=== PATIENT | female | born 1970 | race Caucasian/White ===

== ENCOUNTER → 2019-07-09 12:31 | Outpatient (CLI) | payer OTHER, SELFPAY ==
--- NOTE | ~2019-07-09 | MM_ITS ---
EXAMINATION: MM screening melissa BI w angelica HISTORY: Screening mammogram TECHNIQUE: Craniocaudal and mediolateral oblique 3-D tomosynthesis images were obtained and synthetic 2-D images were generated. CAD analysis was submitted and interpreted. COMPARISON: bilateral digital screening mammogram BREAST PARENCHYMAL COMPOSITION: There are scattered areas of fibroglandular density. FINDINGS: There is no evidence of suspicious mass, calcification, or architectural distortion to sugg est malignancy in either breast. There has been no suspicious interval change. IMPRESSION: 1. No mammographic evidence of malignancy. 2. Recommend routine screening mammography in one year. BI-RADS Category 1: Negative Reviewed, dictated and finalized at location A.
== END ==
PROVIDERS: PCP Nurse Practitioner Adult Health; Visit Provider Obstetrics & Gynecology
DX: Z12.31 Encounter for screening mammogram for malignant neoplasm of breast (principal)
CPT/HCPCS: 77063; 77067

== ENCOUNTER 2019-07-17 09:58 | Outpatient (CLI) | payer OTHER, SELFPAY ==
--- NOTE | ~2019-07-17 | US_ITS ---
EXAMINATION: US FNA w image guidance DATE: 07/17/2019 11:42 INDICATION: Thyroid nodule. TECHNIQUE: The procedure and its benefits, risks, and benefits were discussed with the patient. Risks specifical ly discussed included bleeding. The patient verbalized understanding of the risks and agreed to proce ed. The neck was prepped and draped in the usual sterile manner. 1% lidocaine was used for local ane sthesia. 5 passes were made with a 25G needle into the lesion. Appropriate needle location was docu mented with continuous sonographic guidance. There were no immediate complications. The patient unde rstood to call the ordering physician for results after a week and a half and verbalized that underst anding. FINDINGS: Grayscale ultrasound images demonstrate needles advanced into a 1.5 cm mixed solid and cystic nodule in right thyroid isthmus for biopsy. IMPRESSION: 1. Ultrasound-guided fine needle aspiration of a thyroid nodule. Reviewed, dictated and finalized at location A.
--- NOTE | ~2019-07-17 | US_ITS ---
EXAMINATION: US biopsy lymph node DATE: 07/17/2019 11:41 INDICATION: Right cervical lymphadenopathy. TECHNIQUE: The procedure including the risks, benefits, and alternatives was discussed with the patie nt. Risks discussed included bleeding and infection. The patient understood the risks and agreed to p roceed. The skin overlying the right neck was prepped and draped in usual sterile fashion. Anestheti c was administered with 1% lidocaine subcutaneously. An 18 gauge core biopsy needle was then used to obtain 3 core biopsy specimens under continuous sonographic guidance. The entry site was cleaned and dressed. There were no immediate complications. FINDINGS: Ultrasound images demonstrate the needle in a 2.1 x 1.7 x 1.3 cm right internal jugular lym ph node. IMPRESSION: 1. Ultrasound-guided core needle biopsy of a right internal jugular lymph node. Reviewed, dictated and finalized at location A.
== END 2019-07-17 09:59 | disposition home or self-care (01) ==
LOC: ANHIMG 10:03
PROVIDERS: PCP Nurse Practitioner Adult Health; Visit Provider Internal Medicine Endocrinology, Diabetes & Metabolism
DX: E04.1 Nontoxic single thyroid nodule (principal); R59.0 Localized enlarged lymph nodes
CPT/HCPCS: 10005; 38505; 76942; 88108; 88173; 88305; 88342

== ENCOUNTER 2020-12-02 09:10 | Outpatient (CLI) | payer OTHER, SELFPAY ==
--- NOTE | ~2020-12-02 | CT_ITS ---
EXAMINATION: CT soft tissue neck wo/w con EXAM DATE: 12/02/2020 09:52 INDICATION: Mass of neck . Partial thyroidectomy. TECHNIQUE: Spiral CT of the neck was performed without and then with intravenous injection of 75 mL O mnipaque 350. Axial, coronal and sagittal images were reviewed. The dose-length product (DLP) for t his examination was 1012.10 mGy-cm. The exposure was tailored according to patient size (auto mA exp osure control), and iterative reconstruction (ASIR) was used as additional dose reduction technique. Correlation is made to ultrasound guided biopsies 07/17/2019. FINDINGS: Left thyroid lobe unremarkable. In the right thyroidectomy bed there is nodule of soft tiss ue measuring 2.3 x 1.5 cm with some regions of calcification. There are 2 lymph nodes located higher up in the right internal jugular chain, largest at the level of the hyoid bone which is abnormal roun d shape measuring 1.5 cm with several punctate calcifications, and another one slightly lower measuri ng 1.1 x 0.9 cm. Correlating with prior reports, lymph node and nodule in the right thyroidectomy bed may have both been biopsied on 07/17/2019, with the lymph node reported as papillary thyroid carcinom a. Assuming these are the same findings, sizes appear unchanged compared to that time. The submandibular and parotid glands are symmetric. The superior mediastinum is unremarkable. Th e airway is unremarkable. Parapharyngeal and pre-glottic fat planes are preserved. The opacified vasculature is patent. The orbits are unremarkable. Visualized sinuses and mastoid air cells are well aerated. Lung apices unremarkable. There is mild to moderate cervical spondylosis. IMPRESSION: 1. Pathologically right internal jugular chain lymph node. Another adjacent lymph node upper limits o f normal in size. These could be metastatic papillary thyroid cancer. 2. Nodule of soft tissue in right thyroidectomy bed. 3. Correlate with prior biopsy results. Reviewed, dictated and finalized at location B. IMPRESSION: 1. Pathologically right internal jugular chain lymph node. Another adjacent lym ph node upper limits of normal in size. These could be metastatic papillary thy roid cancer. 2. Nodule of soft tissue in right thyroidectomy bed. 3. Correlate with prior biopsy results.
[2020-12-02 09:34] LABS: Estimated Glomerular Filt Rate > 60
== END 2020-12-02 09:11 ==
PROVIDERS: PCP Nurse Practitioner Adult Health; Visit Provider Internal Medicine Endocrinology, Diabetes & Metabolism
DX: R22.1 Localized swelling, mass and lump, neck (principal)
CPT/HCPCS: 70492; Q9967

== ENCOUNTER → 2022-01-25 10:54 | Outpatient (CLI) | payer OTHER, SELFPAY ==
--- NOTE | ~2022-01-25 | CT_ITS ---
EXAMINATION: CT abdomen pelvis wo con DATE: 01/25/2022 11:15 INDICATION: Recurrent urinary tract infections. TECHNIQUE: Computed tomography (CT) of the abdomen and pelvis was performed without intravenous contr ast. Automated exposure control and iterative reconstruction technique were employed. Exam dose: 118 8.97 mGy-cm total exam DLP. COMPARISON: 05/22/2013 CT abdomen pelvis FINDINGS: The lung bases are clear of infiltrate or consolidation. Normal heart size. No pericardial or pleural effusion. There is cholelithiasis. No gallbladder wall thickening or pericholecystic fluid or fat stranding or bile duct dilatation is detected. Hepatic steatosis. No hepatic, splenic, pancreatic, and adrenal or renal space-occupying mass lesion is detected. No urinary tract calculus or hydroureteronephrosis is evident. An IUD is noted within the enlarged uterus. The urinary bladder is evacuated. Normal appendix. No bowel obstruction, bowel wall thickening, pneumatosis or intraperitoneal free air is detected. Normal caliber of the abdominal aorta. No intraperitoneal or retroperitoneal or pelvic mass lesion or adenopathy or ascites is noted. Small fat-containing umbilical hernia. Moderately severe degenerative disc disease at L5-S1. No suspicious osteolytic or osteoblastic lesion s are noted. IMPRESSION: Cholelithiasis Hepatic steatosis IUD within enlarged uterus Reviewed, dictated and finalized at Location A. Reviewed, dictated and finalized at location A.
== END ==
PROVIDERS: PCP Nurse Practitioner Adult Health; Visit Provider Nurse Practitioner Family
DX: N39.0 Urinary tract infection, site not specified (principal); K80.20 Calculus of gallbladder without cholecystitis without obstruction; K76.0 Fatty (change of) liver, not elsewhere classified; Z97.5 Presence of (intrauterine) contraceptive device; N85.2 Hypertrophy of uterus
CPT/HCPCS: 74176

== ENCOUNTER 2022-09-03 08:41 | Emergency (ER) | payer OTHER, SELFPAY ==
[2022-09-03 09:15] VITALS: BP 171/102; PULSE 112; RESP 16; TEMP 36.5; O2SAT 97
--- NOTE | 2022-09-03 09:19 | ED.FEMALEGU ---
HPI - Female Genitourinary General Chief complaint: Urogenital-Female Stated complaint: uti Time Seen by Provider: 09/03/22 08:55 Source: patient and RN notes reviewed Mode of arrival: wheelchair Limitations: no limitations History of Present Illness HPI Narrative: Patient presents today with urinary frequency x2 days and suprapubic pressure since yesterday. She did have a few episodes of dysuria yesterday as well. States she had 1 episode of hematuria 2 days ago but this has resolved. Patient was on cefdinir on 08/09/2022 by her PCP for UTI. Per her EMR, the culture shows mixed genital marylu less than 10,000 colonies. Patient took a dose of azo, last dose was last night. Related Data Home Medications Medication Instructions Recorded Confirmed methocarbamol 750 mg tablet 750 mg PO ONCE 07/29/19 09/03/22 triamterene 37.5 1 cap PO DAILY PRN swelling 07/29/19 09/03/22 mg-hydrochlorothiazide 25 mg capsule calcium carb 1,200 mg-vit D3 1,000 1 tablet PO DAILY 04/12/22 09/03/22 unit-minerals chewable tablet docusate sodium 100 mg capsule 100 mg PO DAILY PRN Constipation 04/12/22 09/03/22 ferrous sulfate 325 mg (65 mg 325 mg PO 2XW 04/12/22 09/03/22 iron) tablet fluticasone propionate 50 1 spray intranasal BID PRN 04/12/22 09/03/22 mcg/actuation nasal allergies spray,suspension (Flonase Allergy Relief) ketotifen fumarate 0.025 % (0.035 1 drp EACH EYE Q12H 04/12/22 09/03/22 %) eye drops ([place]away) lactobacillus combination no.9 4 4,000 mmu cells PO DAILY 04/12/22 09/03/22 billion cell capsule (Adult 50 Plus Probiotic) levothyroxine 200 mcg capsule 200 mcg PO DAILY 04/12/22 09/03/22 levothyroxine 75 mcg capsule 75 mcg PO DAILY 04/12/22 09/03/22 mecobalamin (vitamin B12) 1,000 1,000 mcg sublingual DAILY 04/12/22 09/03/22 mcg disintegrating tablet,sublingual omega-3 fatty acids 500 mg capsule 500 mg PO DAILY 04/12/22 09/03/22 psyllium husk 0.4 gram capsule 0.4 g PO DAILY 04/12/22 09/03/22 (Daily Fiber) Allergies Allergy/AdvReac Type Severity Reaction Status Date / Time azithromycin Allergy Intermediate HIVES Verified 07/12/22 14:06 Penicillins Allergy Mild Hives Verified 07/12/22 14:06 amoxicillin Allergy Unknown Hives Verified 07/12/22 14:06 ampicillin Allergy Unknown Skin Verified 07/12/22 14:06 irritation ciprofloxacin Allergy Unknown Other Verified 07/12/22 14:06 Sulfa (Sulfonamide Allergy Unknown Skin Verified 07/12/22 14:06 Antibiotics) irritation sulfamethoxazole Allergy Unknown Hives Verified 07/12/22 14:06 levofloxacin Allergy Other Verified 08/10/22 16:24 Review of Systems Review of Systems: CONSTITUTIONAL: Denies body aches, fever, chills, or sweats. EYES: Denies visual changes, redness, or discharge. ENT: Denies rhinorrhea, congestion, sore throat, or otalgia. CARDIOVASCULAR: Denies chest pain, palpitations, or edema. RESPIRATORY: Denies cough or dyspnea. GASTROINTESTINAL: Denies abdominal pain, nausea, vomiting, or diarrhea. GENITOURINARY: + dysuria, hematuria, frequency, suprapubic pressure SKIN: Denies rash, itching, or wounds. MUSCULOSKELETAL: Denies back pain, joint pain, or myalgia. NEUROLOGIC: Denies headache, numbness, tingling, or weakness. PSYCH: Denies depression or anxiety. [facility] Past Medical History Medical History Allergies Anemia Arthritis Asthma Chronic UTI Depression Diabetes Generalized osteoarthritis of multiple sites Hypertension Inflammatory arthritis Primary thyroid papillary adenocarcinoma Spinal cord cancer Spinal cord cancer Thyroid cancer Surgical History Surgical History H/O knee surgery H/O rhinoplasty History of removal of ovarian cyst Family History Family History Father Family history of lung cancer Family history of malignant neoplasm of
== END 2022-09-03 09:38 | disposition home or self-care (01) ==
PROVIDERS: Emergency Provider Nurse Practitioner; PCP Family Medicine
DX: N39.0 Urinary tract infection, site not specified (principal); E11.9 Type 2 diabetes mellitus without complications; I10 Essential (primary) hypertension; Z85.850 Personal history of malignant neoplasm of thyroid; Z87.891 Personal history of nicotine dependence
CPT/HCPCS: 81003; 87077; 87086; 87186; 99213; G0463

== ENCOUNTER 2023-04-28 14:16 | Emergency (ER) | payer OTHER, SELFPAY ==
[2023-04-28 14:25] VITALS: BP 139/95; PULSE 106; RESP 16; TEMP 37; O2SAT 97
--- NOTE | 2023-04-28 14:48 | ED.FEMALEGU ---
HPI - Female Genitourinary General Chief complaint: Urogenital-Female Stated complaint: UTI SYMPTOMS Time Seen by Provider: 04/28/23 14:48 Source: patient and RN notes reviewed Mode of arrival: ambulatory Limitations: no limitations History of Present Illness HPI Narrative: 52-year-old female presents with concern for urinary tract. She reports frequent urinary tract infections, she has a standing order for antibiotics, she took those on April 11 with some symptom relief, reports symptoms returned. She reports difficulty passing urine, frequency, urgency, suprapubic pressure, chills. MD elicited complaint: UTI Related Data Home Medications Medication Instructions Recorded Confirmed methocarbamol 750 mg tablet 750 mg PO ONCE 07/29/19 04/28/23 triamterene 37.5 1 cap PO DAILY PRN swelling 07/29/19 04/28/23 mg-hydrochlorothiazide 25 mg capsule ferrous sulfate 325 mg (65 mg 325 mg PO 2XW 04/12/22 04/28/23 iron) tablet fluticasone propionate 50 1 spray intranasal BID PRN 04/12/22 04/28/23 mcg/actuation nasal allergies spray,suspension (Flonase Allergy Relief) ketotifen fumarate 0.025 % (0.035 1 drp EACH EYE Q12H 04/12/22 04/28/23 %) eye drops ([place]away) lactobacillus combination no.9 4 4,000 mmu cells PO DAILY 04/12/22 04/28/23 billion cell capsule (Adult 50 Plus Probiotic) levothyroxine 200 mcg capsule 200 mcg PO DAILY 04/12/22 04/28/23 mecobalamin (vitamin B12) 1,000 1,000 mcg sublingual DAILY 04/12/22 04/28/23 mcg disintegrating tablet,sublingual omega-3 fatty acids 500 mg capsule 500 mg PO DAILY 04/12/22 04/28/23 psyllium husk 0.4 gram capsule 0.4 g PO DAILY 04/12/22 04/28/23 (Daily Fiber) levothyroxine 75 mcg capsule 25 mcg PO DAILY 04/11/23 04/28/23 Allergies Allergy/AdvReac Type Severity Reaction Status Date / Time azithromycin Allergy Intermediate HIVES Verified 04/28/23 14:32 Penicillins Allergy Mild Hives Verified 04/28/23 14:32 amoxicillin Allergy Unknown Hives Verified 01/27/24 14:32 ampicillin Allergy Unknown Skin Verified 04/28/23 14:32 irritation ciprofloxacin Allergy Unknown Other Verified 04/28/23 14:32 Sulfa (Sulfonamide Allergy Unknown Skin Verified 04/28/23 14:32 Antibiotics) irritation sulfamethoxazole Allergy Unknown Hives Verified 04/28/23 14:32 levofloxacin Allergy Other Verified 04/28/23 14:32 Review of Systems Review of Systems: CONSTITUTIONAL: Denies malaise, chills, sweats, or fever. CARDIOVASCULAR: Denies chest pain, palpitations, or edema. RESPIRATORY: Denies cough or dyspnea. GASTROINTESTINAL: Denies abdominal pain, nausea, vomiting, diarrhea GENITOURINARY: Reports dysuria, frequency, urgency, suprapubic pressure. Denies flank pain or hematuria. SKIN: Denies rash or itching. MUSCULOSKELETAL: Denies back pain or myalgia. All systems reviewed & are unremarkable except as noted in HPI and below PMFSH Past Medical History Medical History Allergies Anemia Arthritis Asthma Chronic UTI Depression Diabetes Generalized osteoarthritis of multiple sites Hypertension Inflammatory arthritis Primary thyroid papillary adenocarcinoma Spinal cord cancer Spinal cord cancer Thyroid cancer Surgical History Surgical History H/O knee surgery H/O rhinoplasty History of removal of ovarian cyst Family History Family History Father Family history of lung cancer Family history of malignant neoplasm of brain Mother Family history of malignant neoplasm of breast in first degree relative Family history of malignant neoplasm of kidney Family history of lung cancer Social History Social History Smoking status: Former smoker Second hand tobacco smoke exposure: No Smoking end date: 04/02/88 Alcohol intake: never
== END 2023-04-28 15:04 | disposition home or self-care (01) ==
PROVIDERS: Emergency Provider Nurse Practitioner; PCP Family Medicine
DX: N39.0 Urinary tract infection, site not specified (principal); D64.9 Anemia, unspecified; E11.9 Type 2 diabetes mellitus without complications; J45.909 Unspecified asthma, uncomplicated; M15.9 Polyosteoarthritis, unspecified; Z85.848 Personal history of malignant neoplasm of other parts of nervous tissue; Z85.850 Personal history of malignant neoplasm of thyroid; Z87.891 Personal history of nicotine dependence
CPT/HCPCS: 81003; 87086; 99213; G0463

== ENCOUNTER 2024-06-24 10:58 | Outpatient (CLI) | payer OTHER, SELFPAY ==
--- OUTSIDE RECORDS SUMMARY | 2024-06-24 13:03 | XMS_ITS | Clinical Summary ---
Author Organization [facility] Address [address] [place] [address] Care Team Providers Care Creative Services Director Name Role Phone Kalina Wilhelm NP Primary Care Provider [phone] Philly Hamilton MD Unavailable Kendell Gandhi DO Unavailable [phone] Belgica Thornton MD Unavailable [phone] Allergies Active Allergy Reactions Criticality Noted Date Comments [facility] Anaphylaxis High 10/31/2021 Amoxicillin Hives Medium Azithromycin Hives Medium Bee Pollen Swelling Medium Bite sites Ciprofloxacin Hives Medium Erythromycin Hives Medium Levofloxacin Joint pain,Muscle pain Medium 08/14/2022 Penicillins Hives Medium 02/08/2017 Sulfa (Sulfonamide Antibiotics) Hives Medium Sulfamethoxazole-Trimethop rim Hives Medium 06/12/2016 Wool Hives Medium Medications meloxicam (MOBIC) 15 mg tabletIndicatio ns:Osteoarthrit is Take 1 tablet (15 mg total) by mouth nightly 3 8 Active methocarbamoL (ROBAXIN) 750 mg tabletIndicatio ns:Muscle Spasm Take 1 tablet (750 mg total) by mouth 2 (two) times a day as needed for muscle spasms 1 Active ferrous sulfate 325 mg (65 mg of elemental iron) tabletIndicatio ns:Iron Deficiency Anemia Take 1 tablet (325 mg total) by mouth every other day Active multivitamin capsuleIndicati ons:Vitamin Deficiency Prevention Take 1 capsule by mouth nightly Active albuterol HFA (PROVENTIL HFA,VENTOLIN HFA,PROAIR HFA) 90 mcg/actuation inhalerIndicati ons:Acute Asthma Attack Inhale 2 puffs every 4 (four) hours as needed for wheezing or shortness of breath Active TRIAMTERENE ORALIndications :leg edema Take 37.5 mg by mouth as needed Active fluticasone propionate (FLONASE) 50 mcg/actuation nasal sprayIndication s:Allergic Rhinitis Administer 1 spray into each nostril daily as needed for rhinitis or allergies Active levothyroxine (SYNTHROID) 200 mcg tabletIndicatio ns:hypothyroidi sm Take 1 tablet (200 mcg total) 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 21 tablet 3 4 Active Active Problems Problem Noted Date Diagnosed Date Iron deficiency anemia 02/14/2023 COPD (chronic obstructive pulmonary disease) Vitamin D deficiency 12/16/2021 Endometrial hyperplasia with atypia 09/20/2021 Overview (09/20/2021): Added automatically from request for surgery [id number] Postoperative hypothyroidism 07/19/2021 Prediabetes 07/19/2021 Vitamin B12 deficiency (non anemic) 07/19/2021 Sleep apnea 07/07/2021 Thyroid cancer 12/22/2020 Cancer Staging:Pathologic stage from 01/25/2021:Stage I(pT1b, pN1b, cM0, Age at diagnosis: < 55 years) - Signed by Dylan Mon MD on 02/07/2021 Overview (01/16/2022): PROCEDURE PERFORMED (01/25/21, Jhony) 1. Left completion thyroidectomy. 2. Right neck dissection level 2A-B, 3 and 4. Stage I (pT1b, pN1b, cM0) DAVISON complete 02/20/21, 08/30/21 ( Markovina) PROCEDURE PERFORMED (01/10/22, Jhony) Left neck dissection level 2A, 2B, 3, 4. 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 Class 3 severe obesity in adult (CMS/[facility]) 2019 Lumbar spondylosis 03/18/2018 Essential hypertension 02/08/2017 Abnormal uterine bleeding 05/31/2015 Overview (03/14/2023): Other specified abnormal uterine and vaginal bleeding;Recorded Elsewhere: No Location: [facility] Source: EHR Chronic: N Practice ID: [id number] Billable Time: 10:45:00 AM Cyst of ovary 10/29/2012 Overview (03/14/2023): Other and unspecified ovarian cyst;Recorded Elsewhere: No Location: [facility] Source: EHR Chronic: N Practice ID: [id number] Billable Time: 03:30:00 PM 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 12 Overview (03/14/2023): Neoplasm of uncertain behavior of ovary;Recorded Elsewhere: No Location: [facility] Source: EHR Chronic: N Practice ID: [id number] Billable Time: 02:45:00 PM Resolved Problems Problem Noted Date Diagnosed Date Resolved Date 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 Anemia 07/07/2021 06/15/2022 Achilles tendinitis 02/08/2021 06/16/19 23 Acute otitis media 02/08/2021 Acute upper respiratory infection 02/08/2021 06/15/2022 Dysuria 02/08/2021 06/15/2022 Intermittent pain 02/08/2021 06/15/2022 Pain in right knee 02/08/2021 3 Urinary tract infectious disease 02/08/2021 06/15/2022 Snoring 09/04/2019 06/15/2022 Fatigue 09/04/2019 06/15/2022 Joint pain 09/04/2019 06/15/2022 Menorrhagia 09/04/2019 06/15/2022 Weight gain 09/04/2019 06/15/2022 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/15/2022 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 06/15/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 ([facility]) 05/17/201705/31 Mass 03/04/2017 06/15/2022 Low back pain 02/08/2017 06/15/2022 Neoplastic disease 02/05/2017 3 Foreign body in vulva and vagina 03/28/2012 01/24/2024 Overview (03/14/2023): Foreign body in vulva and vagina;Recorded Elsewhere: No Location: [facility] Source: EHR Chronic: N Practice ID: [id number] Billable Time: 02:00:00 PM Encounters Date Type Department Care Team Description 05/28/2024 Orders Only [facility] [address] [place] [address] [address] [place] [phone] Kendell Gandhi DO Iron deficiency anemia, unspecified iron deficiency anemia type (Primary Dx) 05/28/2024 Telephone [facility] [address] [place] [address] [address] [place] [address] Bethany Clark CMA 05/27/2024 Telephone [facility] [address] [place] [address] [address] [place] [address] Kristy Zavala 04/21/2024 Orders Only [facility] [address] [place] [address] [address] [place] [address] Leslie Russell, FUAD Iron deficiency anemia, unspecified iron deficiency anemia type (Primary Dx) 04/18/2024 4:30 PM IMPLEMENTATION PROJECT COORDINATOR Telemedicine [facility] [facility] [address] [place] [address] Kendell Gandhi DO Iron deficiency anemia, unspecified iron deficiency anemia type (Primary Dx); Chronic obstructive pulmonary disease, unspecified COPD type (HCC); Thyroid cancer (HCC); Class 3 severe obesity due to excess calories without serious comorbidity in adult, unspecified BMI (HCC) from Last 3 Months Immunizations Immunization Administration Dates Next Due DTaP, Unspecified 1970, 9,1968,09/01,1968,1968 Influenza, Quadrivalent, Michelle l Culture-based MDCK, Preservative Free, Antibiotic Free, Intramuscular 12/30/2019 Influenza, Quadrivalent, Spl it, Intramuscular 01/31/2022,12/31/2019 Influenza, Quadrivalent, Spl it, Preservative Free, Intramuscular 01/11/2022,01/03/2021,01/21/2019,01/21,01/24/2018,01/24/2018,01/24/2018 ,02/07/2017,02/07/2017,02/07/2017,01/01,01/20/2016,01/20/2016 Influenza, Trivalent, IM (MDV) 04/02/2013,2013 Influenza, Unspecified 12/31/2020 MMR 01/10/1995,01/10/1995 Measles 09/18/1969,09/18/1969 Mumps 11/16/1972,11/16/1972 Pfizer SARS-CoV-2 Monovalent Vaccination (12+ Yrs) PURPLE 04/23/2021 Rubella 09/18/1969,09/18/1969 Tdap 01/10/1995, 5,12/01/1976,12/01,09/17/1972,09/17/1972,12/02/1970 ,12/02/1970 Surgical History Surgery Date Site/Laterality Comments ORIF TIBIA FRACTURE 04/02/1974 - 04/01/1975 Right at the age of 4 RHINOPLASTY 04/02/1981 - 04/01/1982 Bilateral at the age of 11 KNEE CARTILAGE SURGERY 04/02/2017 - 04/01/2018 Right BACK SURGERY 04/02/2016 - 04/01/2017 spinal cord cancer surgery THYROIDECTOMY, PARTIAL 09/01/2019 - 09/30/2019 OVARIAN CYST REMOVAL 04/02/1989 - 04/01/1990 DILATION AND CURETTAGE OF UTERUS 04/02/2017 - 04/01/2018 x 5 THYROID SURGERY 04/02/2021 - 04/01/2022 FEMUR SURGERY 04/02/1974 - 04/01/1975 Right ACHILLES TENDON REPAIR 04/02/1991 - 04/01/1992 Right NECK DISSECTION 04/02/2021 - 04/01/2022 Left Medical History Medical History Date Comments Sleep apnea Asthma HTN (hypertension) Depression Osteoarthritis PONV (postoperative nausea and vomiting) Anemia Chronic kidney disease 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 Family History Medical History Relation Name Comments No Known Problems Father Breast cancer Mother Ovarian cancer Mother's Sister Uterine cancer Mother's Sister Diabetes Other 1 Hypertension Other 2 Heart disease Other 4 Anesthesia problems Neg Hx Relation Name Status Comments Father Alive Mother Alive Mother's Sister Other 1 Other 2 Other 3 Other 4 Social History Tobacco Use Types Packs/Day Years Used Date Smoking Tobacco: Former Cigarettes 3 5 1 1989 Passive Smoke Exposure: Past Smokeless Tobacco: Never Tobacco Cessation:Counseling Given: No Comments:quir at the age of 21 Alcohol Use Standard Drinks/Week Comments Defer 0 (1 standard drink = 0.6 oz pur e alcohol) AUDIT-C Answer Date Recorded Q1: How often do you have a drink containing alcohol? Never 01/10/2022 Q2: How many drinks containi ng alcohol do you have on a typical day when you are drinking? Patient does not drink Q3: How often do you have si x or more drinks on one occasion? Never 01/10/2022 Comments No Sex and Gender Information Value Date Recorded Sex Assigned at Not on file Legal Sex Female 3:33 AM IMPLEMENTATION PROJECT COORDINATOR Gender Identity Female 02/21/2022 3:04 PM IMPLEMENTATION PROJECT COORDINATOR Sexual Orientation Straight 02/21/2022 3: 04 PM IMPLEMENTATION PROJECT COORDINATOR Occupation Industry Job Start Date Job End Date Working Not on file Not on file Not on file Obstetrics History Para Term AB IAB SAB Ectopic Multiple Livin g Live Births 3 3 3 3 Date Outcome GA Total Labor Labor/2nd/3rd Weight Sex Type Anes PTL Chelle A1 A5 Name Clin Term Term Term Last Filed Vital Signs Vital Sign Reading Time Taken Comments Blood Pressure 147/84 01/24/2024 1:21 PM CDT Pulse 97 01/24/2024 1:21 PM CDT Temperature 36.5 C (97.7 F) 01/24/2024 1:21 PM CDT Respiratory Rate 20 01/24/2024 1:21 PM CDT Oxygen Saturation 95% 01/24/2024 1:21 PM CDT Inhaled Oxygen Concentration - - Weight 193.9 kg (427 lb 6.4 oz) 01/24/2024 1:21 PM CDT Height 182.9 cm (6' 0.01 ) 04/19/2023 4:09 PM CS T Body Mass Index 57.95 04/19/2023 4:09 PM IMPLEMENTATION PROJECT COORDINATOR Plan of Treatment Health Maintenance Due Date Last Done Comments Breast Cancer Screening-Mammogram 1968 Colon Cancer Screening-Colonoscopy 1968 Depression Screening 1968 Hepatitis C Screening 1968 Hepatitis B Screening 1986 Regular Well Visit/Exam 18-64 1986 Pneumococcal vaccine <65 (1 of 2 - PCV) 06/17/1987 DTaP/Tdap/Td Vaccine (8 - Td or Tdap) 01/10/2005 01/10/1995, 01/10/1995, 12/01/1976, Additional history exists Zoster Vaccine (1 of 2) 2018 Cervical Cancer Screening 2023 06/15/2022 Covid-19 Vaccine (3 - 2023-2 5 season) 2023 04/23/2021, 06/05/2020 Influenza Vaccine (#1) 2023 2, 01/11/2022, 01/03/2021, Additional history exists Procedures Procedure Name Priority Date/Time Associated Diagnosis Comments RETICULOCYTES Routine 04/11/2024 1:22 PM IMPLEMENTATION PROJECT COORDINATOR Iron deficiency anemia, unspecified iron deficiency anemia type IRON PROFILE W/ IBC Routine 04/11/2024 1 :22 PM IMPLEMENTATION PROJECT COORDINATOR Iron deficiency anemia, unspecified iron deficiency anemia type FERRITIN Routine 04/11/2024 1:22 PM IMPLEMENTATION PROJECT COORDINATOR Iron deficiency anemia, unspecified iron deficiency anemia type CBC WITH AUTO DIFFERENTIAL Routine 04/11/2024 1:22 PM IMPLEMENTATION PROJECT COORDINATOR Iron deficiency anemia, unspecified iron deficiency anemia type PAP AND HIGH RISK HPV, REFLEX TO GENOTYPING Routine 06/15/2022 4:35 PM CDT Endometrial hyperplasia with atypia from Last 3 Months or Most Recently Relevant to Health Maintenance Results * (ABNORMAL) Iron profile w/ IBC (04/11/2024 1:22 PM IMPLEMENTATION PROJECT COORDINATOR) Pathologist [facility] Iron Bind.Cap.(TIBC) 372 250 - 450 ug/dL [facility] - 01 UIBC 328 131 - 425 ug/dL [facility] - 01 Iron 44 27 - 159 ug/dL [facility] - 01 Iron saturation 12(L) 15 - 55 % [facility] - 01 Blood 04/11/2024 1:22 PM IMPLEMENTATION PROJECT COORDINATOR 04/11/2024 Narrative [facility] - 04/12/2024 8:12 AM IMPLEMENTATION PROJECT COORDINATOR Performed at: 01 - [facility] [place] [id number] Rn Intern: Choco Hubbard PhD, Phone: [phone] us Kendell Gandhi DO LAB BLOOD ORDERABLES Final R esult [facility] - 01 * (ABNORMAL) CBC with auto differential (04/11/2024 1:22 PM IMPLEMENTATION PROJECT COORDINATOR) Pathologist [facility] WBC 9.8 3.4 - 10.8 x10E3/uL [facility] - 01 RBC 5.07 3.77 - 5.28 x10E6/uL [facility] - 01 Hgb 12.9 11.1 - 15.9 g/dL [facility] - 01 Hct 43.4 34.0 - 46.6 % [facility] - 01 MCV 86 79 - 97 fL [facility] - 01 MCH 25.4(L) 26.6 - 33.0 pg [facility] - 01 MCHC 29.7(L) 31.5 - 35.7 g/dL [facility] - 01 Rdw 15.1 11.7 - 15.4 % [facility] - 01 Platelets 358 150 - 450 x10E3/uL [facility] - 01 Neutrophils pct 72 Not Estab. % [facility] - 01 Lymphs pct 17 Not Estab. % [facility] - 01 Monocytes pct 6 Not Estab. % [facility] - 01 Eosinophils pct 3 Not Estab. % [facility] - 01 Basophil pct 1 Not Estab. % [facility] - 01 Neutrophil abs 7.2(H) 1.4 - 7.0 x10E3/uL [facility] - 01 Lymphs (Absolute) 1.6 0.7 - 3.1 x10E3/uL [facility] - 01 Monocyte abs 0.6 0.1 - 0.9 x10E3/uL [facility] - 01 Eosinophils, abs 0.3 0.0 - 0.4 x10E3/uL [facility] - 01 Basophils, abs 0.1 0.0 - 0.2 x10E3/uL [facility] - 01 Immature Granulocytes 1 Not Estab. % [facility] - 01 Immature Grans (Abs) 0.1 0.0 - 0.1 x10E3/uL [facility] - 01 Blood 04/11/2024 1:22 PM IMPLEMENTATION PROJECT COORDINATOR 04/11/2024 Narrative [facility] - 04/12/2024 7:08 AM IMPLEMENTATION PROJECT COORDINATOR Performed at: [address] [place] [address] [id number] Rn Intern: Choco Hubbard PhD, Phone: [phone] Kendell Gandhi DO LAB BLOOD ORDERABLES Final R esult [facility] - 01 * Reticulocyte Count (04/11/2024 1:22 PM IMPLEMENTATION PROJECT COORDINATOR) [facility] Reticulocyte Count 2.5 0.6 - 2.6 % [facility] - 01 Blood 04/11/2024 1:22 PM IMPLEMENTATION PROJECT COORDINATOR 04/11/2024 Narrative [facility] - 04/12/2024 7:08 AM IMPLEMENTATION PROJECT COORDINATOR Performed at: [address] [place] [id number] Rn Intern: Choco Hubbard PhD, Phone: [phone] us Kendell Gandhi DO LAB BLOOD ORDERABLES Final R esult Performing Organization Address [facility] Co de Phone Number [facility] - 01 * Ferritin (04/11/2024 1:22 PM IMPLEMENTATION PROJECT COORDINATOR) Ferritin 72 15 - 150 ng/mL [facility] - 01 Blood 04/11/2024 1:22 PM IMPLEMENTATION PROJECT COORDINATOR 04/11/2024 Narrative [facility] - 04/12/2024 8:12 AM IMPLEMENTATION PROJECT COORDINATOR Performed at: [address] [place] [address] [id number] Rn Intern: Choco Hubbard PhD, Phone: [phone] Kendell Gandhi DO LAB BLOOD ORDERABLES Final R esult Performing Organization Address [facility] de Phone Number [facility] - * (ABNORMAL) Pap and High Risk HPV, reflex to Genotyping (06/15/2022 4:35 PM CDT) Thin prep (Pap test) 06/15/2022 4:35 PM CDT 06/15/2022 7:38 PM CDT Narrative PATHOLOGY [facility] - 06/21/2022 11:22 AM CDT EPIC results best viewed via link to PDF [facility] [place] [address] Note to Patients: This report may contain a detailed description of human tissue sent by a health care provider to the laboratory for pathologic evaluation. The content of this report is essential for diagnosis and may provide important critical findings. This information may be unfamiliar to patients to review without a medical professional present. It is advised that the patient review this report in the presence of a health care provider who can answer questions and explain the details. CYTOPATHOLOGY REPORT FINAL Patient Name: MELISSA EUBANKS Gender: F : 1970 (Age: 52) Address: [address] [place] [id number] Hospital #: [id number] Service: CONSTRUCTION MANAGEMENT INSTRUCTOR Location: Patient Type: [facility] SPECIMEN Taken: 06/15/2022 Received: 06/15/2022 Accessioned: 2022 Reported: 06/21/2022 Physician(s): Saundra Gomez M.D. FINAL INTERPRETATION SOURCE OF SPECIMEN Liquid based Thin Prep pap with HPV: STATEMENT OF ADEQUACY - Satisfactory for evaluation - Endocervical cells/transformation zone sample present GENERAL CATEGORIZATION: - Epithelial cell abnormality DESCRIPTION: - Atypical squamous cells; cannot exclude high grade squamous intraepithelial lesion - Reactive cellular changes Comments HPV Result: NEGATIVE for high risk types of Human Papilloma Virus (HPV) RNA This probe detects the presence of HPV types: 16, 18, 31, 33, 35, 39, 45, 51, 52, 56, 58, 59, 66 and 68. This HPV test was performed at [facility] in [place], [place] utilizing the Gen-Probe Aptima assay. sxja/06/21/2022 09:07 By this signature, I attest that the above diagnosis is based upon my personal examination of the slides(and/or other material indicated in the diagnosis). Isaias Preciado M.D. Report Electronically Reviewed and Signed Out By Isaias Preciado M.D. 06/21/2022 11:22:58 Janette Padilla, ABILIO(ASCP) Cervicovaginal Cytology (Pap Test) Disclaimer: The Pap test is a screening test used to detect cervical cancer and its precursors; it is not a diagnostic procedure. False negative and false positive results do occur. Pap test results should be interpreted in the context of pertinent clinical information and biopsy results as indicated. CMS Clinical Laboratory Improvement Amendments (CLIA) mandate that cytologic and histologic results be correlated for laboratory air quality specialist & improvement standards. FOR ALL HIGH-GRADE CASES we request submission of follow-up histological material and/or reports that have not been previously provided so that we may fulfill said required standards. Gross Description A. Liquid based Thin Prep pap with HPV:Cervical/vaginal - Screening ThinPrep Clinical Diagnosis and History Last Menstrual Period: N/A The patient is a 52 year old female with history complex atypical endometrial hyperplasia, currently on no therapy, presenting with thickened endometrium and an episode of spotting. The HPV test was performed by [facility], [address] [place] [address]. Report Images and scanned documents, if included only viewable in PDF version The performance characteristics of some immunohistochemical stains, in-situ hybridization and fluorescence in-situ hybridization tests and immunophenotyping by flow cytometry cited in this report (if any) were determined by the Surgical Pathology Department at [facility] as part of an ongoing quality control industrial engineer program and in compliance with federally mandated regulations drawn from the Clinical Laboratory Improvement Act of 1988 (CLIA '88). Some of these tests rely on the use of analyte specific reagents and are subject to specific labeling requirements by the US Food and Drug Administration. Such diagnostic tests may only be performed in a facility that is certified by the Department of Health and Human Services as a high complexity laboratory under CLIA '88. The FDA has determined that such clearance or approval is not necessary. This test is used for clinical purposes. It should not be regarded as investigational or for research. Nevertheless, federal rules concerning the medical use of analyte specific reagents require that the following disclaimer be attached to the report: This test was developed and its performance characteristics determined by the Surgical Pathology Department of [facility]. It has not been cleared or approved by the U. S. Food and Drug Administration. Saundra Gomez MD LAB CYTOLOGY ORDERABLES F inal Result PATHOLOGY [facility] 3rd Floor [place], [place] [phone] from Last 3 Months or Most Recently Relevant to Health Maintenance Insurance [employer]US Advance Directives For more information, please contact: [phone] * Full Code (Latest Code Status on File) Date Activated Date Inactivated Comments 01/10/2022 6:24 PM 01/11/2022 3:10 PM * Full Code Date Activated Date Inactivated Comments 01/25/2021 4:35 PM 01/27/2021 4:54 PM Care Teams Creative Services Director Relationship Specialty Start Date End Date Kalina Wilhelm NP PCP - General 05/02/17 Philly Hamilton MD [address] [facility] [address] [place] [address] Radiation Oncologist Radiation Oncology 02/03/21 Kendell Gandhi DO [address] [place] [address] MEDICAL ONCOLOGY, [address] [address] Medical Oncologist/Floor Layer Hematology and Oncology 08/21/22 Belgica Thornton MD [address] [place], [place] [id number] Referring Physician Obstetrics and Gynecology 01/30/24
--- OUTSIDE RECORDS SUMMARY | 2024-06-24 13:03 | XMS_ITS | Referral Summary ---
Author Organization [facility] Address [address] [place] [address] Care Team Providers Care Engineering Technologist Name Role Phone Kalina Wilhelm NP Primary Care Provider Philly Hamilton MD Unavailable [phone] Kendell aGndhi DO Unavailable [phone] Belgica Thornton MD Unavailable [phone] Encounters Date Type Department Care Team Description 05/28/2024 Orders Only [facility] On[facility] [place] [address] Kendell Gandhi DO Iron deficiency anemia, unspecified iron deficiency anemia type (Primary Dx) 05/28/2024 Telephone [facility] Oncology [address] [place] [address] Bethany Clark CMA 05/27/2024 Telephone [facility] [address] [place] [phone] Kristy Zavala 04/21/2024 Orders Only [facility] [address] [place] [address] Leslie Russell, RN Iron deficiency anemia, unspecified iron deficiency anemia type (Primary Dx) 04/18/2024 4:30 PM INVASIVE PHYSICIAN Telemedicine [facility] Oncology [address] [place] [address] Kendell Gandhi DO Iron deficiency anemia, unspecified iron deficiency anemia type (Primary Dx); Chronic obstructive pulmonary disease, unspecified COPD type (HCC); Thyroid cancer (HCC); Class 3 severe obesity due to excess calories without serious comorbidity in adult, unspecified BMI (HCC) from Last 3 Months Allergies Active Allergy Reactions Criticality Noted Date Comments [place] Anaphylaxis High 10/31/2021 Amoxicillin Hives Medium Azithromycin [...] 1 tablet (200 mcg total) by mouth services account manager before breakfast 2 Active cyanocobalamin (Vitamin B-12) [...] (09/20/2021): Added automatically from request for surgery [id number] Postoperative hypothyroidism 07/19/2021 Prediabetes 07/19/2021 Vitamin B12 [...] 09/04/2019 Class 3 severe obesity in adult (CMS/HCC) 2019 Lumbar spondylosis 03/18/2018 Essential hypertension 02/08/2017 Abnormal uterine bleeding 05/31/2015 Overview (03/14/2023): Other specified abnormal uterine and vaginal bleeding;Recorded Elsewhere: No Location: [facility] Source: EHR Chronic: N Practice ID: [id number] Billable Time: 10:45:00 AM Cyst of ovary 10/29/2012 Overview (03/14/2023): Other and unspecified ovarian cyst;Recorded Elsewhere: No Location: [facility] Source: EHR Chronic: N Practice ID: [id number] Billable Time: 03:30:00 PM 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 12 Overview (03/14/2023): Neoplasm of uncertain behavior of ovary;Recorded Elsewhere: No Location: [facility] Source: EHR Chronic: N Practice ID: [id number] Billable Time: 02:45:00 PM Resolved Problems Problem Noted Date Diagnosed Date Resolved Date 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 Anemia 07/07/2021 06/15/2022 Achilles tendinitis 02/08/2021 06/16/19 23 Acute otitis media 02/08/2021 3 Acute upper respiratory infection 02/08/2021 06/15/2022 Dysuria 02/08/2021 06/15/2022 Intermittent pain 02/08/2021 06/15/2022 Pain in right knee 02/08/2021 Urinary tract infectious disease 02/08/2021 06/15/2022 Snoring 09/04/2019 06/15/2022 Fatigue 09/04/2019 06/15/2022 Joint pain 09/04/2019 06/15/2022 Menorrhagia 09/04/2019 06/15/2022 Weight gain 09/04/2019 06/15/2022 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 06/15/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 ([facility]/HCC) 05/17/201705/31 Mass 03/04/2017 06/15/2022 Low back pain 02/08/2017 06/15/2022 Neoplastic disease 02/05/2017 3 Foreign body in vulva and vagina 03/28/2012 01/24/2024 Overview (03/14/2023): Foreign body in vulva and vagina;Recorded Elsewhere: No Location: [facility] Source: EHR Chronic: N Practice ID: [id number] Billable Time: 02:00:00 PM Immunizations Immunization Administration Dates Next Due DTaP, [...] 04/23/2021 Rubella 09/18/1969,09/18/1969 Tdap 01/10/1995, 5,12/01/1976,12/01,09/17/1972,09/17/1972,12/02/1970 ,12/02/1970 Social History Tobacco Use Types Packs/Day Years Used Date Smoking Tobacco: Former Cigarettes 3 5 1 5 - 1989 Passive Smoke Exposure: Past Smokeless Tobacco: [...] on file Legal Sex Female 3:33 AM INVASIVE PHYSICIAN Gender Identity Female 02/21/2022 3:04 PM INVASIVE PHYSICIAN Sexual Orientation Straight 02/21/2022 3: 04 PM INVASIVE PHYSICIAN Occupation Industry Job Start Date Job End Date Working Not on file Not on file Not on file Last Filed Vital Signs Vital Sign Reading [...] Body Mass Index 57.95 04/19/2023 4:09 PM INVASIVE PHYSICIAN Plan of Treatment Not on file Procedures Procedure Name Priority Date/Time Associated Diagnosis Comments RETICULOCYTES Routine 04/11/2024 1:22 PM INVASIVE PHYSICIAN Iron deficiency anemia, unspecified iron deficiency anemia type IRON PROFILE W/ IBC Routine 04/11/2024 1 :22 PM INVASIVE PHYSICIAN Iron deficiency anemia, unspecified iron deficiency anemia type FERRITIN Routine 04/11/2024 1:22 PM INVASIVE PHYSICIAN Iron deficiency anemia, unspecified iron deficiency anemia type CBC WITH AUTO DIFFERENTIAL Routine 04/11/2024 1:22 PM INVASIVE PHYSICIAN Iron deficiency anemia, unspecified iron deficiency anemia type PAP AND HIGH RISK HPV, REFLEX TO GENOTYPING Routine 06/15/2022 4:35 PM CDT Endometrial hyperplasia with atypia from Last 3 Months or Most Recently Relevant to Health Maintenance Results * (ABNORMAL) Iron profile w/ IBC (04/11/2024 1:22 PM INVASIVE PHYSICIAN) Pathologist [facility] Iron Bind.Cap.(TIBC) 372 250 - 450 ug/dL [facility] - 01 UIBC 328 131 - 425 ug/dL [facility] - 01 Iron 44 27 - 159 ug/dL [facility] - 01 Iron saturation 12(L) 15 - 55 % [facility] - 01 Blood 04/11/2024 1:22 PM INVASIVE PHYSICIAN 04/11/2024 Narrative [facility] - 04/12/2024 8:12 AM INVASIVE PHYSICIAN Performed at: [facility] [id number] Physician Relations Representative: Choco Hubbard PhD, Phone: [phone] us Kendell Gandhi DO LAB BLOOD ORDERABLES Final R esult [facility] - 01 * (ABNORMAL) CBC with auto differential (04/11/2024 1:22 PM INVASIVE PHYSICIAN) Pathologist [facility] WBC 9.8 3.4 - 10.8 x10E3/uL [facility] [...] [facility] - 01 Blood 04/11/2024 1:22 PM INVASIVE PHYSICIAN 04/11/2024 Narrative [facility] - 04/12/2024 7:08 AM INVASIVE PHYSICIAN Performed at: [address] [place] [id number] Physician Relations Representative: Choco Hubbard PhD, Phone: [phone] Kendell Gandhi DO [facility] BLOOD ORDERABLES Final R esult Performing Organization Address [facility] Co de Phone Number [facility] - 01 * Reticulocyte Count (04/11/2024 1:22 PM INVASIVE PHYSICIAN) Pathologist [facility] Reticulocyte Count 2.5 0.6 - 2.6 % [facility] - 01 Blood 04/11/2024 1:22 PM INVASIVE PHYSICIAN 04/11/2024 Narrative [facility] - 04/12/2024 7:08 AM INVASIVE PHYSICIAN Performed at: [address] [place] [id number] Physician Relations Representative: Choco Hubbard PhD, Phone: [phone] Kendell Gandhi DO LAB BLOOD ORDERABLES Final R esult [facility] - 01 * Ferritin (04/11/2024 1:22 PM INVASIVE PHYSICIAN) Ferritin 72 15 - 150 ng/mL [facility] - Blood 04/11/2024 1:22 PM INVASIVE PHYSICIAN 04/11/2024 Narrative [facility] - 04/12/2024 8:12 AM INVASIVE PHYSICIAN Performed at: [facility] [id number] Physician Relations Representative: Choco Hubbard PhD, Phone: [phone] us Kendell Gandhi DO LAB BLOOD ORDERABLES Final R esult Performing Organization Address City/[facility]/ZIP Co de Phone Number [facility] - 01 * (ABNORMAL) Pap and High Risk HPV, reflex to Genotyping (06/15/2022 4:35 PM CDT) Thin prep (Pap test) 06/15/2022 4:35 PM CDT 06/15/2022 7:38 PM CDT Narrative PATHOLOGY [facility] - 06/21/2022 11:22 AM CDT EPIC results best viewed via link to PDF [facility] [place] [address] Note to Patients: This report may contain [...] Gender: F : 1970 (Age: 52) Address: [address] [place] [id number] [facility] #: [id number] 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 This HPV test was performed at [facility] in [place], [place] utilizing the Gen-Probe Aptima assay. sxja/06/21/2022 09:07 By this signature, I attest that the above diagnosis is based upon my personal examination of the slides(and/or other material indicated in the diagnosis). Isaias Preciado M.D. Report Electronically Reviewed and Signed Out By Isaias Preciado M.D. 06/21/2022 11:22:58 ABILIO Arita(ASCP) Cervicovaginal Cytology (Pap Test) Disclaimer: The Pap test is a screening test used to detect cervical cancer and its precursors; it is not a diagnostic procedure. False negative and false positive results do occur. Pap test results should be interpreted in the context of pertinent clinical information and biopsy results as indicated. [facility] Clinical Laboratory Improvement Amendments (CLIA) mandate that cytologic and histologic results be correlated for laboratory quality improvement engineer & improvement standards. FOR ALL HIGH-GRADE CASES [...] spotting. The HPV test was performed by [facility], [address] [place] [address]. Report Images and scanned documents, if included only viewable in PDF version The performance characteristics of some immunohistochemical stains, in-situ hybridization and fluorescence in-situ hybridization tests and immunophenotyping by flow cytometry cited in this report (if any) were determined by the Surgical Pathology Department at [facility] as part of an ongoing quality system manager program and in compliance with federally mandated [...] determined by the Surgical Pathology Department of [facility]. It has not been cleared or approved by the U. S. Food and Drug Administration. Saundra Gomez MD LAB CYTOLOGY ORDERABLES F inal Result PATHOLOGY [facility] [address] [place], [place] [phone] from Last 3 Months or Most Recently Relevant to Health Maintenance Insurance [facility] [employer] [facility] [facility]PPO Address: [address] [place] [address] [facility] Address: [address] [place] [address] [facility] Address: [address] [place] [address] Advance Directives For more information, please contact: [phone] * Full Code (Latest Code Status on File) Date Activated Date Inactivated Comments 01/10/2022 6:24 PM 01/11/2022 3:10 PM * Full Code Date Activated Date Inactivated Comments 01/25/2021 4:35 PM 01/27/2021 4:54 PM Care Teams Engineering Technologist Relationship Specialty Start Date End Date Kalina Wilhelm NP PCP - General 05/02/17 Philly Hamilton MD [address] [facility] [address] [place] [address] Radiation Oncologist Radiation Oncology 02/03/21 Kendell Gandhi DO [address] [place] [address] MEDICAL ONCOLOGY, [facility] [address] [place] [address] Medical Oncologist/Head Chef Hematology and Oncology 08/21/22 Belgica Thornton MD [address] [place] [address] Referring Physician Obstetrics and Gynecology 01/30/24
--- OUTSIDE RECORDS SUMMARY | 2024-06-24 13:03 | XMS_ITS | Data Portability ---
Author Organization [facility] Address [address] [place] [address] Assessment Encounter Date Assessment Date Assessment LastModified by Organization Details LastModified Time 12/21/2020 12/21/2020 We discussed causes of abnormal bleeding including perimenopause, anovulation, thyroid dysfunction (recently normal TSH per pt), fibroids, polyps, hyperplasia or malignancy Needs EMB and US CBC discussed mgt options and that hysterectomy is not first line, especially with her morbid obesity and other medical problems. Recommended Mirena IUD if appropriate following work up. Pt amenable. Discussed the risks, benefits, and alternatives to Mirena IUD. Discussed insertion and removal process. Discussed bleeding profile. Questions answered. pt requests meds to pretreat before both EMB and IUD insert due to low pain threshold. will send. [email or web address] Not available 12/27/2020 10:58:22 01/04/2021 01/04/2021 Discussed US results in depth. she is aware of thickened endometrium. EMB done today, will call with results Discussed options to manage bleeding if EMB benign. I recommend starting with Mirena IUD given her BMI and morbidities that could cause surgical complications. [email or web address] Not available 01/11/2021 13:46:03 01/06/2022 01/06/2022 We discussed that many of her sx CAN be from progesterone in Mirena, though many also can be from perimenopause/m enopause and is hard to distinguish cause. Until she loses weight I think she should keep mirena in so hyperplasia does not return and potentially turn into cancer. depression precautions given. d enies SI/HI. declines medication. 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 she does not want to see Dr. Mclean. will ask his office if she can switch to other provider, otherwise we can refer to other location. we discussed that many of her problems stem from her obesity. discussed bariatric surgery, she has thought of this, but has been focused on her hyperplasia and thyroid issues. after her thyroid surgery next week, she would like to have a consult with a bariatric surgeon. i think this is a great idea, as it would help her HTN, joint issues, hyperplasia, etc. will place referral to bariatric surgery. hypertension uncontrolled- will call PCP today re med adjustment [email or web address] Not available 01/10/2022 09:29:23 Plan of Treatment Reminders Order Date Submit Date Provider Last Modified By Organization Details Last Modified Time Details Appointments None recorded. Lab surgical pathology study 2020 [facility] (Lab), [address] [facility], [place], [address], 15:04:05 Referral None recorded. Procedures None recorded. Surgeries None recorded. Imaging US, transvagina l 2020 021 [email or web address] [facility], [facility] [address], [place], [address], 09:12:40 Medication Orders [place] 10 mg-325 mg tablet 2020 [id number], [address], [place], [id number], 14:13:18 Xanax 0.5 mg tablet 2020 021 [id number], [address], [place], [id number], 14:12:34 Zofran 8 mg tablet 2020 [facility], [address], [id number], 14:13:51 ibuprofen 800 mg tablet 2020 021 [facility]70, [address], [place], [place], [id number], 14:13:11 Patient TargetsNo targets recorded. Patient InstructionsNo instructions recorded. Reason for Referral None Reported. Results Created Date Observation Date Name Description Value Unit Range Abnormal Flag Note LastModifiedBy Organization Detail LastModifiedTime 01/05/20 21 01/04/2021 SURGI DES PATHO LOGY surgical pathology SEE RESULT S BELOW TUTU DUM: At the [facility] st of Marian Sam, the slide s were sent out for addit ional consu ltati on at [facility] rsity [address] [facility], [place] [address] and revie wed by Kiersten chino M.D., whose diagn osis is as follo ws: Diagn osis: Consu lt mater ial recei yoshi from [place], [place] ([facility] [id number]; 2020) . Uteru s endom etriu m, biops y -Foca l compl ex endom etria l hyper plasi a with atypi a -No evide nce of kaila stevenson The compl ete repor t has been scann ed into [facility]. Tutu beasley elect maurizio ojeda by Jose Pichardo MD on 022 at 2:32 PM ----- ----- ----- ----- ----- ----- ----- ----- ----- ----- ----- ----- ----- ----- ----- ----- ----- ---- CASE REPOR T: Surgi des Patho logy Repor t Case: [id number] Autho beatrice medrano Provi nicole: Belgica Bautista MD Colle cted: 01/04 1712 Order ing Locat ion: [place] [facility] Recei yoshi: 01/05 0042 Patho logis t: Jose Pichardo MD Speci men: Endom etriu m, endom etriu m FINAL DIAGN OSIS: Endom etriu m, biops y: -Foca l compl ex endom etria l hyper plasi a with cytol ogic atypi a in a backg round of disor dered proli ferat charan endom etriu m. Elect donteguera fuentescher gurpreet d by Jose Pichardo MD on 2020 at 2:00 PM ----- ----- ----- ----- ----- ----- ----- ----- ----- ----- ----- ----- ----- ----- ----- ----- ----- ---- COMME NT: This case has been revie wed by intra depar tment al consu ltati on, with agree ment. CLINI DES INFOR MATIO N: ABNOR MAL UTERI NE BLEED ING MICRO SCOPI C DESCR IPTIO N: A micro scopi c exami natio n was perfo rmed. GROSS DESCR IPTIO N: A. Endom etriu m. The speci men is label ed with the patie nt's name, demog jazmyn livingston and endom etriu m . Recei yoshi in forma rae is a 2.9 x 2.0 x 0.[address] of [place] tissu e. The entir e speci men is submi tted in one casse tte. Gross ed by Rojelio Castle on Not Available [facility] (Lab) [address], [place], [address], 05/31/2021 15:35:16 12/31/19 21 12/30/2020 US, trans vagin al No observ ation record ed. [email or web address] [facility] [address], [place], [address], 12/30/2020 12:57:25 12/31/19 21 12/30/2020 US, trans vagin al No observ ation record ed. [email or web address] [address], [place], [address], 01/04/2021 17:03:47 Result Notes None recorded. Problems Name Problem SNOMED Code Status Onset Date Resolution Date Notes Provider Name and Address Organization Details Recorded Time Body mass index 40+ - severely obese 140933827 Active 2020 Belgica Thornton MD [address], [place], [address], [facility] 10:30:57 Cyst of ovary 60722504 Completed 201201/04/2021 Other and unspecif ied ovarian cyst;Rec orded Elsewher e: No [facility]: EHR Furnace Setter gordon: N Practi ce ID: 0001 Nikolay lable Time: 03:30:00 PM Belgica Thornton MD [address], [place], [address], [facility] 10:38:[address] Concept Completed 201901/04/2021 Encntr for sprinkler driver exam (general ) (routine ) w/o abn findings ;Recorde d Elsewher e: No Locat ion: [facility] S ource: EHR Furnace Setter gordon: N Practi ce ID: 0001 Nikolay lable Time: 10:15:00 AM Belgica Thornton MD [address], [place], [address], [facility] 10:38:52 Uses combined oral contrace ption 299659971 Completed 201901/04/2021 Encounte r for surveill ance of contrace ptive pills;Re corded Elsewher e: No Locat ion: [facility] S ource: EHR Furnace Setter gordon: N Practi ce ID: 0001 Nikolay lable Time: 11:15:00 AM Belgica Thornton MD [address], [place], [address], [facility] 10:38:26 Finding of pattern of menstrua l cycle Completed 201501/04/2021 Other specifie d irregula r menstrua tion;Rec orded Elsewher e: No Locat ion: [facility] S ource: EHR Furnace Setter gordon: N Practi ce ID: 0001 Nikolay lable Time: 03:15:00 PM Belgica Thornton MD [address], [place], [address], [facility] 10:38:[address] Concept Completed 201901/04/2021 Encntr for general adult medical exam w/o abnormal findings ;Recorde d Elsewher e: No Locat ion: [facility] S ource: EHR Furnace Setter gordon: N Practi ce ID: 0001 Nikolay lable Time: 10:15:00 AM Belgica Thornton MD [address], [place], [address], [facility] 10:38:50 Dysfunct ional uterine bleeding Completed 201101/04/2021 Other disorder s of menstrua tion and other abnormal bleeding from female genital tract;Re corded Elsewher e: No Locat ion: [facility] S ource: EHR Furnace Setter gordon: N Practi ce ID: 0001 Nikolay lable Time: 02:45:00 PM Belgica Thornton MD [address], [place], [address], [facility] 10:38:31 Screenin g for malignan t neoplasm of rectum Completed 201801/04/2021 Encounte r for screenin g for malignan t neoplasm of rectum;R ecorded Elsewher e: No [facility]: EHR Furnace Setter gordon: N Practi ce ID: 0001 Nikolay lable Time: 09:45:00 AM Belgica Thornton MD [address], [place], [address], [facility] 1 10:38:48 Neoplasm of uncertai n behavior of ovary 27642598 Completed 201101/04/2021 Neoplasm of uncertai n behavior of ovary;Re corded Elsewher e: No Locat ion: Marykike guillory [facility] S ource: EHR Furnace Setter gordon: N Practi ce ID: 0001 Nikolay lable Time: 02:45:00 PM Belgica Thornton MD [address], [place], [address], [facility] 1 10:38:44 Foreign body in vulva and vagina 503237406 Completed 201101/04/2021 Foreign body in vulva and vagina;R ecorded Elsewher e: No [facility]: EHR Furnace Setter gordon: N Practi ce ID: 0001 Nikolay lable Time: 02:00:00 PM Belgica Thornton MD [address], [place], [address], [facility] 1 10:38:42 Finding of pattern of menstrua l cycle 862959381 Completed 201801/04/2021 Menometr orrhagia ;Recorde d Elsewher e: No Locat ion: [facility] S ource: EHR Furnace Setter gordon: N Practi ce ID: 0001 Nikolay lable Time: 09:45:00 AM Belgica Thornton MD [address], [place], [address], [facility] 1 10:38:39 Urogenit al finding Completed 201601/04/2021 Excessiv e bleeding in the premenop ausal period;R ecorded Elsewher e: No Locat ion: Beau guillory [facility] S ource: EHR Furnace Setter gordon: N Practi ce ID: 0001 Nikolay lable Time: 02:45:00 PM Belgica Thornton MD [address], [place], [address], [facility] 10:38:56 Acute sinusiti s 18263417 Completed 201101/04/2021 Sinusiti s, Acute;Re corded Elsewher e: No Locat ion: Karonkike pastora [facility] S ource: EHR Furnace Setter gordon: N Practi ce ID: 0001 Nikolay lable Time: 04:15:00 PM Belgica Thornton MD [address], [place], [address], [facility] 10:38:24 Abnormal uterine bleeding [id number] 9100 Completed 201501/04/2021 Other specifie d abnormal uterine and vaginal bleeding ;Recorde d Elsewher e: No [facility] S ource: EHR Furnace Setter gordon: N Elizati ce ID: 0001 Nikolay lable Time: 10:45:00 AM Belgica Thornton MD [address], [place], [address], [facility] 10:38:33 Evaluati on finding Completed 201901/04/2021 Hematuri a, unspecif ied;Regulo rded Elsewher e: No [facility] S ource: EHR Furnace Setter gordon: N Elizati ce ID: 0001 Nikolay lable Time: 10:15:00 AM Belgica Thornton MD [address], [place], [address], [facility] 10:38:35 Premenop ausal menorrha dianna Completed 201201/04/2021 Premenop ausal menorrha dianna;Regulo rded Elsewher e: No Locat ion: Beau guillory [facility] S ource: EHR Furnace Setter gordon: N Practi ce ID: 0001 Nikolay lable Time: 03:30:00 PM Belgica Thornton MD [address], [place], [address], [facility] 10:38:46 Problem Notes None recorded. Procedures Surgical History Date Name Laterality Status Provider Name and Address Organization Details Recorded Time 01/05/20 21 Endometrial Biopsy completed Belgica Thornton MD [address], [place], [address], [facility] 01/11/2021 13:43:29 06/05/19 20 Date of Last Pap Smear completed [facility] 12/21/2020 09:30:45 04/02/19 20 Thyroid Surgery completed [facility] 12/21/2020 16:37:09 procedure on knee completed [facility] 12/21/2020 09:27:41 Imaging Results Imaging Date Name Status LastModified by Organization Details LastModified Time 12/30/2020 US, transvaginal completed [email or web address] Beau pastora [address], [place], [address], 12/30/2020 12:57:25 12/30/2020 US, transvaginal completed [email or web address] [address] [facility], [place], [address], 01/04/2021 17:03:47 Procedure Notes None recorded. Medical Equipment None Reported. Allergies Allergen ID Allergen Name Allergen Category Reaction Reaction Severity Criticality Documentation Date Start Date Code Code System Note Provider Name and Address Organization Details Recorded Time 88858 azithromy obi medicatio n Not available Not available Not available 03/19/2020 76167 RxNorm Comme nt: Locat ion: [facility]; Not Available [facility] 0 14:14:50 17411 Product containin g penicilli n (product) medicatio n Not available Not available Not available 03/19/2020 10479 8001 SNOMED Comme nt: Locat ion: Jus Pereira r; Not Available [facility] 0 14:14:50 20009 Substance with sulfonami de structure and antibacte rial mechanism of action (substanc e) medicatio n Not available Not available Not available 03/19/2020 56853 8003 SNOMED Comme nt: Locat ion: Jus Pereira r; Not Available [facility] 0 14:14:50 Medications Name Sig Start Date Stop Date Status Note LastModified by Organization Details LastModified Time Prometriu m 200 mg capsule take 1 capsule by oral route every day for 12 days in the evening sequenti ally per 28 day cycle 01/15 completed Prescrib ed Elsewher e: No Locat ion: [facility] odify By: tgingrenee h Uri chu DateTime : 01/05/20 17 02:45:00 PM Not Available Not Available Not Available azelastin e 0.05 % eye drops active Not Available Not Available No t Available doxycycli ne hyclate 100 mg capsule TAKE 1 CAPSULE BY MOUTH TWICE DAILY FOR 10 DAYS 01/06 completed Not Available Not Available Not Available ibuprofen 800 mg tablet Take 1 tablet 2 hours before the procedur e. 01/06 completed Not Available Not Available Not Available levothyro xine 300 mcg tablet 01/06 completed Not Available Not Available Not Available Lasix 40 mg tablet take 1 tablet by oral route every day 05/17 completed Prescrib ed Elsewher e: Yes Loca tion: [facility] odify By: [email or web address] E ncounter DateTime : 02/28/20 12 04:15:00 PM Not Available Not Available Not Available ondansetr on HCl 8 mg tablet Take 1 tablet 2 hours before the procedur e. 01/06 completed Not Available Not Available Not Available meloxicam 15 mg tablet TAKE 1 TABLET BY MOUTH DAILY active Not Available Not Available No t Available metronida zole 500 mg tablet TAKE 1 TABLET BY MOUTH EVERY 12 HOURS. DO NOT DRINK ALCOHOL WHILE TAKING THIS MEDICATI ON 01/06 completed Not Available Not Available Not Available trimethop rim 100 mg tablet TAKE 1 TABLET BY MOUTH TWICE DAILY active Not Available Not Available No t Available hydrocodo ne 10 mg-acetam inophen 325 mg tablet Take 1 tablet 2 hours before the procedur e. 01/06 completed Not Available Not Available Not Available nitrofura ntoin 25 mg/5 mL oral suspensio n take 10 millilit er by oral route every 6 hours with food 12/21 completed Prescrib ed Elsewher e: Yes Loca tion: [facility] odify By: [email or web address] Encount er DateTime : 06/01/19 19 09:45:00 AM Not Available Not Available Not Available levothyro xine 75 mcg tablet TAKE 1 TABLET BY MOUTH EVERY DAY active Not Available Not Available No t Available Aleve 220 mg tablet take 1 tablet by oral route every 12 hours as needed 05/17 completed Prescrib ed Elsewher e: Yes Loca tion: [facility] odify By: harika Guillory ncounter DateTime : 02/28/20 12 04:15:00 PM Not Available Not Available Not Available meloxicam 7.5 mg tablet take 1 tablet by oral route every day 12/21 completed Prescrib ed Elsewher e: Yes Loca tion: [facility] odify By: [email or web address] Guillory ncounter DateTime : 05/17/19 16 01:45:00 PM Not Available Not Available Not Available alprazola m 0.5 mg tablet Take 1 tablet 2 hours before the procedur e. 01/06 completed Not Available Not Available Not Available methocarb david 750 mg tablet TAKE 1 TABLET BY MOUTH TWICE DAILY NEEDED 12/21 completed Not Available Not Available Not Available doxycycli ne monohydra te 100 mg capsule TAKE 1 CAPSULE BY MOUTH TWICE DAILY FOR 7 DAYS 01/06 completed Not Available Not Available Not Available Dyrenium 50 mg capsule take 1 capsule by oral route every day after a meal 12/21 completed Prescrib ed Elsewher e: Yes Loca tion: [facility] odify By: [email or web address] Encount er DateTime : 06/01/19 09:45:00 AM Not Available Not Available Not Available Cipro 500 mg tablet take 1 tablet by oral route every 12 hours 06/24 completed Prescrib ed Elsewher e: No Locat ion: [facility] odify By: tabatha chu DateTime : 06/13/19 05:56:41 PM Not Available Not Available Not Available losartan 25 mg tablet TAKE 1 TABLET BY MOUTH TWICE DAILY active Not Available Not Available No t Available megestrol 40 mg tablet 01/06 completed Not Available Not Available Not Available docusate sodium 100 mg capsule TAKE 1 CAPSULE BY MOUTH TWICE DAILY FOR 10 DAYS 01/06 completed Not Available Not Available Not Available triamtere ne 37.5 mg-hydroc hlorothia zide 25 mg tablet TAKE 1 TABLET BY MOUTH EVERY DAY 12/21 completed Not Available Not Available Not Available levothyro xine 200 mcg tablet TAKE 1 TABLET BY MOUTH EVERY DAY IN THE MORNING. TOTAL DAILY DOSE IN 275 MCG 01/06 completed Not Available Not Available Not Available calcitrio l 1 mcg/mL oral solution 01/06 completed Not Available Not Available Not Available levofloxa obi 500 mg tablet TAKE 1 TABLET BY MOUTH DAILY 01/06 completed Not Available Not Available Not Available methylpre dnisolone 4 mg tablets in a dose pack FOLLOW PACKAGE DIRECTIO NS 01/06 completed Not Available Not Available Not Available albuterol sulfate HFA 90 mcg/actua tion aerosol inhaler INHALE 2 PUFFS BY MOUTH EVERY 4 HOURS NEEDED 12/21 completed Not Available Not Available Not Available Cortispor in-TC 3.3 mg-3 mg-10 mg-0.5 mg/mL ear drops,holly pension 01/06 completed Not Available Not Available Not Available cefdinir 300 mg capsule TAKE 1 CAPSULE BY MOUTH EVERY 12 HOURS active Not Available Not Available No t Available vitamin E 268 mg (400 unit) capsule active Prescrib ed Elsewher e: Yes Loca tion: [facility] odify By: Encount er DateTime : 06/01/19 09:45:00 AM Not Available Not Available Not Available Concerta 27 mg tablet,ex tended release TAKE 1 TABLET BY MOUTH EVERY DAY 01/06 completed Not Available Not Available Not Available Bactrim DS 800 mg-160 mg tablet take 1 tablet by oral route every 12 hours 06/24 completed Prescrib ed Elsewher e: No Locat ion: [facility] odify By: tabatha chu DateTime : 06/09/19 06:07:02 PM Not Available Not Available Not Available Gena 0.35 mg tablet take 1 tablet by oral route every day 08/21 completed Prescrib ed Elsewher e: No Locat ion: [facility] odify By: letty wise DateTime : 06/05/19 10:15:00 AM Not Available Not Available Not Available Vitamin D3 25 mcg (1,000 unit) tablet active Prescrib ed Elsewher e: Yes Loca tion: [facility] odify By: [email or web address] Encount er DateTime : 06/01/19 09:45:00 AM Not Available Not Available Not Available escitalop ann 5 mg tablet TAKE 1 TABLET BY MOUTH EVERY DAY 12/21 completed Not Available Not Available Not Available nitrofura ntoin monohydra te/macroc rystals 100 mg capsule TAKE 1 CAPSULE BY MOUTH TWICE DAILY 01/06 completed Not Available Not Available Not Available aspirin active Not Available Not Avail able Not Available calcium active Not Available Not Avail able Not Available iron active Not Available Not Availa ble Not Available Viorele (28) 0.15 mg-0.02 mg (21)/0.01 mg (5) tablet take 1 tablet by oral route every day 05/15 completed Prescrib ed Elsewher e: Yes Loca tion: [facility] odify By: melba lobo DateTime : 02/26/20 02:15:00 PM Not Available Not Available Not Available PreviDent 5000 Booster Plus 1.1 % dental paste BRUSH TWICE DAILY 01/06 completed Not Available Not Available Not Available ID NOW COVID-19 Test Kit TEST DIRECTED TODAY 01/06 completed Not Available Not Available Not Available Vitals Date Recorded Body height Body mass index (BMI) Body weight Systolic blood pressure Diastolic blood pressure Provider Name and Address Organization Details Last Updated DateTime 12/21/2020 182.88 cm 51.3 kg/m2 216849.9 2 g 142 mm[Hg] 90 mm[Hg] [facility] 1 16:35:23 Date Recorded Body height Body mass index (BMI) Body weight Systolic blood pressure Diastolic blood pressure Provider Name and Address Organization Details Last Updated DateTime 01/04/2021 182.88 cm 51.4 kg/m2 642599.5 1 g 130 mm[Hg] 82 mm[Hg] [facility] 1 16:53:41 Date Recorded Body height Body mass index (BMI) Body weight Systolic blood pressure Diastolic blood pressure Systolic blood pressure Diastolic blood pressure Provider Name and Address Organization Details Last Updated DateTime 2 182.88 cm 57 kg/m2 607850. 8 g 179 mm[Hg] 101 mm[Hg] 160 mm[Hg] 90 mm[Hg] [facility] 2 14:11:32 Social History None recorded. Functional Status None recorded. Mental Status None recorded. Family History Nothing Reported Notes:aunt: Diabetes mellitu s, Genetic disease Father: brain cancer, Cancer, lung Maternal grandmother: Genetic disease, Thyroid disease Mother: kidney cancer, ovarian cyst, Thyroid disease, psych disease, Cancer, breast, prolapsed uterus, Congenital heart disease uncle: Congenital heart disease, Diabetes mellitus, Genetic disease Medical History Condition Response Allergies (Food, seasonal, environmental ) N Other N Breast Cancer N Drug/Latex Allergies/Reactions N Blood Transfusion N Dermatologic Disorders N Lung Disease N Defects or Inherited Disease N Breast Problem N Gestational Diabetes N Hematologic disorders N Anesthesia Complications N History of STI N Deep Vein Thrombosis N Polycystic ovary syndrome N Anxiety Disorder N Autoimmune disease N Arthritis N Infertility Y Polyps N Acid Reflux (GERD) N History of abnormal pap N Cancer Y Stroke N Varicosities N Neurologic/Epilepsy N Endometriosis N High Cholesterol N Headaches N Fibromyalgia N Kidney Disease N Heart Problems N Kidney or Bladder Problems N Thyroid Problems Y GI Problems N Eating Disorder N Anemia Y Art (IVF or FET) N Psychiatric Illness N Ovarian Cancer N Diabetes N Pulmonary (TB, Asthma) N Hepatitis/Liver Disease N No Past Medical History N Eczema N Urinary Tract Infection N Abuse/Domestic Violence N Asthma N Trauma/Violence N Depression/ depression N Heart Disease N Pre-Eclampsia N Hypertension Y Osteoporosis N Thrombophilias N Gynecological History Statement/Question Response Date of Last Pap Smear 06/05/2019 Current Control Method IUD Obstetrics History GPAL:G 3 P 3 0 0 3 Type Value Full Term 3 Living 3 Total 3 Past Encounters Encounter ID Performer Location Encounter Start Date Encounter Closed Date Diagnosis/Indication Diagnosis SNOMED-CT Code Diagnosis ICD10 Code Diagnosis Note [id number] Belgica Thornton MD [facility] [address],[place] [address] 12/21/2020 16:21:16 12/22/2020 21:55:44 Menometrorrhagia 780879699 N92.1 Body mass index 40+ - severely obese 940927009 Z68.43 Preoperative state 61042 002 Z78.9 [id number] [facility] [address],[place] [address] 12/30/2020 11:26:50 12/30/2020 12:20:21 Abnormal uterine bleeding [id number] 9100 N93.9 [id number] Belgica Thornton MD [facility] [address],[place] [address] 01/04/2021 16:42:36 01/10/2021 12:27:42 Abnormal uterine bleeding [id number] 9100 N93.9 [id number] Belgica Thornotn MD [facility] [address],[place] [address] 01/06/2022 13:52:12 01/10/2022 15:23:59 Body mass index 40+ - severely obese 695553751 Z68.43 Intrauteri ne contraceptive device in situ 611390951 Z97.5 History of endometrial hyperplasia 8770573850 43365 Z87.42 Multiple joint pain 3567 8005 M25.50 Edema of l ower extremity 862788791 R60.0 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 Irregular intermenstrual bleeding 13639241 N92.1 Perimenopa usal disorder 785261539 N95.9 Malignant tumor of thyroid gland 339386641 C73 Hypertensive crisis 7068 12847 I16.9 Health Concerns Section Related Observation LastModified by Organization Detai ls LastModified Time None Recorded Concern Status LastModified by Organization Details LastModified Time None Recorded Advance Directives Directive None Recorded Payers Encounter Date Sequence Insurance Name Policy Number Policy Pedraza Covered Member ID Pedraza Member ID Guarantor Name 12/21/2020 1 [facility] [id number] Isaiah Ojeda [place] [id number] Gloria Eubanks 12/30/2020 1 [facility] [id number] Isaiah Ojeda [place] [id number] Gloria [place] 01/04/2021 1 [facility] [id number] Isaiah Ojeda [place] [id number] Gloria Raimundo 01/06/2022 1 [facility] [id number] Isaiah Ojeda [place] [id number] Gloria Eubanks Notes Date Note Type Note Provider Name and Address Organization Details Recorded Time 12/21/2020 text/html Pt is a 50yo here complaining of bleeding problems. Periods irregualr for a year, but heavy when it comes. SOmetimes bleeds weeks at a time with lots of clots. Last month felt fatigued with bleeding, started iron. Taking thyroid med. This has been a problem before with multiple D and Cs and transfusions in 6680-8797. Denies fever, abdominal pain Additional concerns: sexually active: n contraception:n Last annual exam:06/2019 Belgica Thornton MD [address], [place], [address], [facility] 12/27/2020 10:59:45 01/04/2021 text/html 50yo her e for EMB for menometrorrhagia. US showed enlarged uterus with 16-26mm endometrium. Her CBC was done at [facility] and we do not have results yet. Bleeding remains heavy and irregular. Belgica Thornton MD [address], [place], [address], [facility] 01/11/2021 13:47:04 01/06/2022 text/html Gloria is her ewi th several complaints. She has history of complex endometrial hyperplasia with atypia, treated first with megace for 6 mos, hated it, EMB was improved, then couldn't get second EMB after she had stopped it for a while so [facility] did a D and C and put Mirena in at same time. Bleeding with mirena started shortly after and since it was placed 6 weeks ago has had only 8 days of no bleeding. Her two biggest problems with it are her joint pain has doubled with it and she feels her thinking has slowed. SHe also feels her mood is affected and she has depression/anxiety /anger, though she denies SI.HI. She also is retaining water and her leg edema is worse. She does not want to follow up with Dr. Mclean any more. She saw him with her concerns and feels he was blowing them off and didn't believe her. SHe is gaining weight, she cannot exercise because of the worsening joint pain, and she hates the IUD, which she is not convinced she needed anyways because the EMB was better before it was placed. her BP is bad, she is having thyroid surgery next week, she is overall stressed out and not feeling well. Belgica Thornton MD [address], [place], [address], [facility] 01/10/2022 09:29:31 OBGyn Episode Ob Episode Information Episode Created Date Number of Fetuses Patient Bloodtype Patient rh Status Prepregnancy Weight lbs Domestic Partner Domestic Partner Phone Father Name Corrections Lieutenant Status 12/22/19 21 1 CLOSED Fetus Data First Name Last Name Admitted to NICU Weight (g) Sex Living Outcome Pediatric Complications Fetus ID Race Codes Race Delivery Type 3486.76 [id number] M [id number] Vaginal Delivery Shola Calculation Initial Shola Date Initial Exam Date Initial Exam Provider Initial Ultrasound Date Last Menstrual Period Date Ultra Sound Weeks Gestation 0 Eighteen To Twenty Week Shola Update Ultra Sound Date Fundal Height At Umbil Quickening Date Ultra Sound Latest Weeks Gestation Final Shola Confirmed By Final Shola Confirmed Date Final Shola Date Ultra Sound Latest Days Gestation 0 0 Menstrual History Last Menstrual Date Menses Monthly On Bcp Conception Prior Menses Frequency Hcg Plus Date Menarche Onset Age Delivery Information Delivery Date Delivery Type Labor Anesthesia Weeks Gestation Incision Type Labor Labor Length Hrs Delivered By Post Complications Tubal Sterilization Discharge Date Comments 2 Discharge Information Feeding Method Contraceptive Method Maternal HG B and HCT Levels Ob Episode Information Episode Created Date Number of Fetuses Patient Bloodtype Patient rh Status Prepregnancy Weight lbs Domestic Partner Domestic Partner Phone Father Name Corrections Lieutenant Status 12/22/19 21 1 CLOSED Fetus Data First Name Last Name Admitted to NICU Weight (g) Sex Living Outcome Pediatric Complications Fetus ID Race Codes Race Delivery Type 3401.94 M [id number] Vaginal Delivery Shola Calculation Initial Shola Date Initial Exam Date Initial Exam Provider Initial Ultrasound Date Last Menstrual Period Date Ultra Sound Weeks Gestation 0 Eighteen To Twenty Week Shola Update Ultra Sound Date Fundal Height At Umbil Quickening Date Ultra Sound Latest Weeks Gestation Final Shola Confirmed By Final Shola Confirmed Date Final Shola Date Ultra Sound Latest Days Gestation 0 0 Menstrual History Last Menstrual Date Menses Monthly On Bcp Conception Prior Menses Frequency Hcg Plus Date Menarche Onset Age Delivery Information Delivery Date Delivery Type Labor Anesthesia Weeks Gestation Incision Type Labor Labor Length Hrs Delivered By Post Complications Tubal Sterilization Discharge Date Comments 9 Discharge Information Feeding Method Contraceptive Method Maternal HG B and HCT Levels Ob Episode Information Episode Created Date Number of Fetuses Patient Bloodtype Patient rh Status Prepregnancy Weight lbs Domestic Partner Domestic Partner Phone Father Name Corrections Lieutenant Status 12/22/19 21 1 CLOSED Fetus Data First Name Last Name Admitted to NICU Weight (g) Sex Living Outcome Pediatric Complications Fetus ID Race Codes Race Delivery Type 3401.94 F [id number] Vaginal Delivery Shola Calculation Initial Shola Date Initial Exam Date Initial Exam Provider Initial Ultrasound Date Last Menstrual Period Date Ultra Sound Weeks Gestation 0 Eighteen To Twenty Week Shola Update Ultra Sound Date Fundal Height At Umbil Quickening Date Ultra Sound Latest Weeks Gestation Final Shola Confirmed By Final Shola Confirmed Date Final Shola Date Ultra Sound Latest Days Gestation 0 0 Menstrual History Last Menstrual Date Menses Monthly On Bcp Conception Prior Menses Frequency Hcg Plus Date Menarche Onset Age Delivery Information Delivery Date Delivery Type Labor Anesthesia Weeks Gestation Incision Type Labor Labor Length Hrs Delivered By Post Complications Tubal Sterilization Discharge Date Comments 0 trisomy 21,heart defect,ju venile arthritis Discharge Information Feeding Method Contraceptive Method Maternal HG B and HCT Levels
--- OUTSIDE RECORDS SUMMARY | 2024-06-24 13:03 | XMS_ITS ---
Author Organization [facility] Address [address] [place] [address] Care Team Providers Care Binder Folder Operator Name Role Phone Kalina Wilhelm NP Primary Care Provider [phone] Philly Hamilton MD Unavailable [phone] Kendell Gandhi DO Unavailable [phone] Belgica hTornton MD Unavailable [phone] Active Problems Problem Noted Date Diagnosed Date Iron deficiency anemia 02/14/2023 COPD (chronic obstructive pulmonary disease) Vitamin D deficiency 12/16/2021 Endometrial hyperplasia with atypia 09/20/2021 Overview (09/20/2021): Added automatically from request for surgery [id number] Postoperative hypothyroidism 07/19/2021 Prediabetes 07/19/2021 Vitamin B12 deficiency (non anemic) 07/19/2021 Sleep apnea 07/07/2021 Thyroid cancer 12/22/2020 Cancer Staging:Pathologic stage from 01/25/2021:Stage I(pT1b, pN1b, cM0, Age at diagnosis: < 55 years) - Signed by Dylan Mon MD on 02/07/2021 Overview (01/16/2022): PROCEDURE PERFORMED (01/25/21, [place]) 1. Left completion thyroidectomy. 2. 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 Past Treatment and Therapy Plans No past plan information found. 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 Anemia 07/07/2021 06/15/2022 Achilles tendinitis 02/08/2021 06/16/19 Acute otitis media 02/08/2021 Acute upper respiratory infection 02/08/2021 06/15/2022 Dysuria 02/08/2021 06/15/2022 Intermittent pain 02/08/2021 06/15/2022 Pain in right knee 02/08/2021 Urinary tract infectious disease 02/08/2021 06/15/2022 Snoring 09/04/2019 06/15/2022 Fatigue 09/04/2019 06/15/2022 Joint pain 09/04/2019 06/15/2022 Menorrhagia 09/04/2019 06/15/2022 Weight gain 09/04/2019 06/15/2022 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
--- OUTSIDE RECORDS SUMMARY | 2024-06-24 13:03 | XMS_ITS | Encounter Summary ---
Author Organization [facility] Address [address] [place] [address] Care Team Providers Care [facility] Name Role Phone Kalina Wilhelm NP Primary Care Provider [phone] Philly Hamilton MD Unavailable [phone] Kendell Gandhi DO Unavailable [phone] Belgica Thornton MD Unavailable [phone] Encounter Details Date Type Department Care Team (Late st Contact Info) Description 09/06/2020 Telephone [facility] [address] [place] [address] Yessenia Mckeon, Social History Tobacco Use Types Packs/Day Years Used Date Smoking Tobacco: Former Smokeless Tobacco: Never Alcohol Use Standard Drinks/Week Comments Defer 0 (1 standard drink = 0.6 oz pur e alcohol) Comments No Sex and Gender Information Value Date Recorded Sex Assigned at Not on file Legal Sex Female 3:33 AM FIRE OFFICIAL Gender Identity Female 02/21/2022 3:04 PM FIRE OFFICIAL Sexual Orientation Straight 02/21/2022 3: 04 PM FIRE OFFICIAL documented as of this encounter Plan of Treatment Not on file documented as of this encounter Visit Diagnoses Not on filedocumented in this encounter Additional Health Concerns Infection Onset Date Last Indicated Resolved Time COVID: Suspected 01/19/2021 01/19/2021 01/20/2021 10:05 AM CDT documented as of this encounter Care Teams [facility] Relationship Specialty Start Date End Date Kalina Wilhelm NP PCP - General 05/02/17 Philly Hamilton MD [address] [facility] [address] [place] [address] Radiation Oncologist Radiation Oncology 02/03/21 Kendell Gandhi DO [address] [place] [address] MEDICAL ONCOLOGY, [address] [address] Medical Oncologist/Lpn Rn Hematology and Oncology 08/21/22 Belgica Thornton MD [address] [place] [address] Referring Physician Obstetrics and Gynecology 01/30/24 documented as of this encounter
== END 2024-06-24 10:59 | disposition home or self-care (01) ==
LOC: ANHAUDIO 10:59
PROVIDERS: PCP Family Medicine; Visit Provider Family Medicine
DX: H93.11 Tinnitus, right ear (principal); H93.8X9 Other specified disorders of ear, unspecified ear
CPT/HCPCS: 92557; 92567

== ENCOUNTER 2024-08-19 14:01 | Outpatient (CLI) | payer OTHER, SELFPAY ==
--- NOTE | ~2024-08-19 | US_ITS ---
US retroperitoneal comp 08/19/2024 14:38 Procedure: Realtime transabdominal ultrasound of the kidneys and bladder. Indication: Recurrent UTI Comparison: CT dated 01/25/2022 Findings: Renal echotexture is normal bilaterally without hydronephrosis, contour deforming mass or r enal calculus. The right kidney measures 12.6 cm and left kidney measures 9.5 cm. Bladder within nor mal limits. Incidental note is made of fatty infiltration of the liver. Impression: 1: Unremarkable renal ultrasound. No stones, masses or hydronephrosis. 2: Fatty infiltration of the liver. Reviewed, dictated and finalized at location [] Impression: 1: Unremarkable renal ultrasound. No stones, masses or hydronephrosis. 2: Fatty infiltration of the liver.
== END 2024-08-19 14:02 | disposition home or self-care (01) ==
LOC: MICIMG 14:02
PROVIDERS: PCP Family Medicine; Visit Provider Physician Assistant Medical
DX: N39.0 Urinary tract infection, site not specified (principal)
CPT/HCPCS: 76770

== ENCOUNTER 2024-08-19 14:04 | Outpatient (CLI) | payer OTHER, SELFPAY ==
--- NOTE | ~2024-08-19 | US_ITS ---
EXAM: Focused ultrasound examination of the soft tissues of the neck HISTORY: Personal history of papillary thyroid cancer post thyroidectomy and neck dissection with pos itive lymph nodes presents following radioactive iodine for surveillance imaging of cervical lymphade nopathy TECHNIQUE: Sonographic evaluation of the soft tissues of the neck were performed assessing grayscale appearance and color Doppler flow. COMPARISON: No post operative / post treatment imaging is available for comparison. FINDINGS: No anatomic levels are designated on the static or the cine images for accurate localizatio n. Within the soft tissues of the right neck is a single enlarged, morphologically suspicious lymph node measuring 13 mm in short axis dimension. In addition, multiple morphologically benign nonpathologically enlarged lymph nodes are identified wi thin the soft tissues of the right neck. No lymph nodes are identified on the imaging labeled left neck. Sonographic evaluation of the right and left thyroid fossa are without sonographically identifiable t hyroid tissue. IMPRESSION: A single enlarged morphologically suspicious lymph node within the soft tissues of the right neck, fo r which cross-sectional imaging (contrast-enhanced CT examination of the soft tissues of the neck) is suggested for further evaluation. Reviewed, dictated and finalized at location A. IMPRESSION: A single enlarged morphologically suspicious lymph node within the soft tissues of the right neck, for which cross-sectional imaging (contrast-enhanced CT exa mination of the soft tissues of the neck) is suggested for further evaluation.
== END 2024-08-19 14:05 | disposition home or self-care (01) ==
LOC: MICIMG 14:04
PROVIDERS: PCP Family Medicine; Visit Provider Internal Medicine
DX: C73 Malignant neoplasm of thyroid gland (principal); I10 Essential (primary) hypertension; E89.0 Postprocedural hypothyroidism
CPT/HCPCS: 76536

== ENCOUNTER 2024-10-13 12:12 | Emergency (ER) | payer OTHER, SELFPAY ==
--- NOTE | 2024-10-13 12:24 | ED_ITS ---
HPI - Female Genitourinary General Chief complaint: Urogenital-Female Stated complaint: Uti Symptoms Time Seen by Provider: 10/13/24 12:36 Source: patient, RN notes reviewed and old records reviewed Mode of arrival: ambulatory Limitations: no limitations History of Present Illness HPI Narrative: 54-year-old female presents to the [facility] with concerns for a UTI. Patient is in a wheelchair. Patient reports 3 weeks of increasing leaking. Patient also reports the last 2 days she has had burning with urination. Has tried [id number] products with no relief Has a history of incontinence, history of multiple UTIs. Patient reports that the incontinence has increased Patient reports that she did take some Macrobid a week or 2 ago that she had sitting in the house Patient with significant medication allergies. Patient denies any abdominal pain, no flank pain. No CVA tenderness. Denies fevers Related Data Home Medications ?Medication ?Instructions ?Recorded ?Confirmed ?Last Taken ?Type methocarbamol 750 mg tablet 750 mg PO ONCE 07/29/19 10/13/24 Unknown History triamterene 37.5 1 cap PO DAILY PRN swelling 07/29/19 10/13/24 Unknown History mg-hydrochlorothiazide 25 mg capsule ferrous sulfate 325 mg (65 mg 325 mg PO 2XW 04/12/22 10/13/24 Unknown History iron) tablet fluticasone propionate 50 1 spray intranasal BID PRN 04/12/22 10/13/24 Unknown History mcg/actuation nasal allergies spray,suspension (Flonase Allergy Relief) lactobacillus combination no.9 4 4,000 mmu cells PO DAILY 04/12/22 10/13/24 Unknown History billion cell capsule (Adult 50 Plus Probiotic) omega-3 fatty acids 500 mg capsule 500 mg PO DAILY 04/12/22 10/13/24 Unknown History cholecalciferol (vitamin D3) 50 50 mcg PO DAILY 04/30/24 10/13/24 Unknown History mcg (2,000 unit) capsule cinnamon bark extract 500 mg tablet 500 mg PO DAILY 04/30/24 10/13/24 Unknown History ketotifen fumarate 0.025 % (0.035 1 drp EACH EYE Q12H PRN allergy 04/30/24 10/13/24 Unknown History %) eye drops (Alaway) symptoms psyllium husk 0.4 gram capsule 0.4 g PO DAILY PRN constipation 04/30/24 10/13/24 Unknown History (Daily Fiber) Allergies Allergy/AdvReac Type Severity Reaction Status Date / Time azithromycin Allergy Intermediate HIVES Verified 10/13/24 12:21 Penicillins Allergy Mild Hives Verified 10/13/24 12:21 amoxicillin Allergy Unknown Hives Verified 10/13/24 12:21 ampicillin Allergy Unknown Skin Verified 10/13/24 12:21 irritation ciprofloxacin Allergy Unknown Other Verified 10/13/24 12:21 Sulfa (Sulfonamide Allergy Unknown Skin Verified 10/13/24 12:21 Antibiotics) irritation sulfamethoxazole Allergy Unknown Hives Verified 10/13/24 12:21 levofloxacin Allergy Other Verified 10/13/24 12:21 Review of Systems Review of Systems: All systems reviewed & are unremarkable except as noted in HPI and below Constitutional: Constitutional: Reports no additional constitutional complaints Genitourinary: Genitourinary: Reports as per HPI Musculoskeletal: Musculoskeletal: Reports no additional musculoskeletal complaints PMFSH Past Medical History Medical History Spinal cord cancer 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 Inflammatory arthritis Spinal cord cancer Chronic UTI Hypertension Arthritis Diabetes Thyroid cancer Anemia Depression Asthma Allergies Surgical History Surgical History History of removal of ovarian cyst H/O knee surgery H/O rhinoplasty Family History Family History Father Family history of lung cancer Family history of malignant neoplasm of brain Mother , February 24 2024 Family history of malignant neoplasm of breast in first degree relative Family history of malignant neoplasm of kidney Family history of lung cancer Social History Social History Social History: Caffeine-none Smoking status: Former smoker Second hand tobacco smoke exposure: No Smoking end date: 04/02/92 Alcohol intake: never Substance use: never Substance use type: does not use Lack of Transportation: No Lack of Food: Never True Current Housing: I Have Housing Concerned About Future Housing: No Difficulty Paying Gas/Electric Bills: No Difficulty Paying for Meds: No Currently Unemployed: No Education: Associate Degree Difficulty w/ Childcare or Family Care: No Living arrangements: with family Occupation/Education: unemployed Gender identity (if verbalized by the patient): Female Agree to blood products: Yes Comments At the time of my signature, I reviewed and agree with the nursing past medical, surgical, social, and family history. There is no relevant family history pertinent to the patient complaint. Exam Const: General: cooperative, no acute distress, well developed, alert, uncomfortable and well nourished Nutritional Appearance: well nourished and obese Orientation/consciousness: patient oriented x3 Limitations: no limitations HENMT: Head: normal to inspection Eyes: General: appearance normal, both eyes and all related structures Alignment and Position: alignment normal Neck: Neck: normal visual inspection, full ROM, no lymphadenopathy and no meningeal signs Chest: Chest palpation & inspection: normal inspection of the chest Resp: Effort & Inspection: normal respiratory effort and able to speak in complete sentences Auscultation: clear to auscultation bilaterally, no crackles, no rales, no rhonchi and no wheezes Cardio: Rate: regular rate : General: Yes no CVA tenderness Skin: General skin exam: normal color and no rashes or lesions noted Neuro: General: patient oriented x3, moves all extremities and no meningeal signs Cognition (Neuro): normal cognition Speech: normal speech Extrem: General: normal to inspection, full ROM and capillary refill normal Psych: Appearance: grossly normal and well kempt Mental Status: mental status grossly normal Speech and movement: Normal speech and movement present and Clear speech present Affect: normal affect Attitude: cooperative Course Course Level of Care: Express Care Visit Vital Signs Vital signs: Vital Signs Temperature 98.6 F 10/13/24 12:28 Pulse Rate 94 10/13/24 12:28 Respiratory Rate 16 10/13/24 12:28 Blood Pressure 145/62 H 10/13/24 12:28 Pulse Oximetry 97 10/13/24 12:28 Oxygen Delivery Room Air 10/13/24 12:28 Temperature 98.6 F 10/13/24 12:28 Pulse Rate 94 10/13/24 12:28 Respiratory Rate 16 10/13/24 12:28 Blood Pressure 145/62 H 10/13/24 12:28 Pulse Oximetry 97 10/13/24 12:28 Oxygen Delivery Room Air 10/13/24 12:28 Reviewed MDM - Female Genitourinary MDM Narrative Medical decision making narrative: Patient sitting in her wheelchair. Patient is nontoxic, vitals are stable Patient presents with concerns for UTI. Patient urine dip shows positive leukocytes, positive blood. Patient with significant allergies, has taken Keflex in the past without issue. Will send culture Patient appropriate for outpatient treatment with close follow-up Discharge instructions reviewed with patient, as well as provided in writing per nursing staff. The instructions also include specific and strict return/GO TO THE ER as well as f/u information. All questions have been answered, and the patient deny any further questions with discharge and discharge plan. Some parts of this dictation were generated by voice recognition software and may contain typographical and/or grammatical inaccuracies. Differential Diagnosis Differential diagnosis: Likely urinary tract infection, bacterial vaginosis and cystitis Lab Data Labs: Lab Results 10/13/24 Range/Units 12:34 POC Urine Color Yellow POC Urine Clarity Clear POC Urine pH 6.5 POC Ur Specif [place]yl 1.025 POC Urine Protein Trace (Negative) POC Ur Glucose (UA) Negative (Negative) POC Urine Ketones Negative (Negative) POC Urine Blood 1+ (Negative) POC Urine Nitrite Negative (Negative) POC Urine Bilirubin Negative (Negative) POC Urine Urobilinogen 0.2 POC U Leukocyte Esteras 1+ (Negative) Reviewed Critical Care Time Critical Care Time Critical Care Time: No Discharge Plan Discharge Clinical Impression: UTI (urinary tract infection) Qualifiers: Urinary tract infection type: acute cystitis Hematuria presence: with hematuria Qualified Code(s): N30.01 - Acute cystitis with hematuria Patient Disposition: Home Condition: Stable Instructions: Antibiotic Form, Urinary Tract Infection in Women (ED) Additional Instructions: Increased water intake Take Tylenol as needed for pain Take antibiotic as prescribed Today your urine dip showed a probability of a UTI. You have been prescribed an antibiotic. Your urine will be sent to our lab for a culture. If at that time a bacteria grows that is not covered by the antibiotic prescribed you will be notified. Follow-up with primary care or urologist For new or worsening symptoms go directly to the emergency room Patient Language: Citizen Of [place] Prescriptions: New cephalexin 500 mg capsule 500 mg PO Q6H 7 Days Qty: 28 0RF No Action (DME) CPAP Equipment See Rx Instructions .Route .MEDSUPPLY Qty: 1 0RF Rx Instructions: Rx: Mask Re-Fit (Consider AmaraView and [employer] DreamWear FFM) Dx: G47.33 *Please link me to patient's CPAP machine through [facility]* Physician: Dr. Gregoria Almendarez DO DME: [facility] [place] in [place], [place] albuterol sulfate 90 mcg/actuation HFA aerosol inhaler 2 puff inhalation Q4-6H PRN (Reason: shortness of breath or wheezing) Qty: 8.5 2RF eszopiclone [Lunesta] 2 mg tablet 2 mg PO QHS Qty: 1 0RF Rx Instructions: Take on night of sleep study ferrous sulfate 325 mg (65 mg iron) tablet 325 mg PO 2XW Adult 50 Plus Probiotic 4 billion cell capsule 4,000 mmu cells PO DAILY Rx Instructions: administer with a meal omega-3 fatty acids 500 mg capsule 500 mg PO DAILY fluticasone propionate [Flonase Allergy Relief] 50 mcg/actuation spray,suspension 1 spray intranasal BID PRN (Reason: allergies) Rx Instructions: administer into each nostril ketotifen fumarate [Alaway] 0.025 % (0.035 %) drops 1 drp EACH EYE Q12H PRN (Reason: allergy symptoms) psyllium husk [Daily Fiber] 0.4 gram capsule 0.4 g PO DAILY PRN (Reason: constipation) cinnamon bark extract 500 mg tablet 500 mg PO DAILY cholecalciferol (vitamin D3) 50 mcg (2,000 unit) capsule 50 mcg PO DAILY methocarbamol 750 mg tablet 750 mg PO ONCE triamterene-hydrochlorothiazid 37.5-25 mg capsule 1 cap PO DAILY PRN (Reason: swelling) meloxicam 15 mg tablet See Rx Instructions .ROUTE .COMPLEX Qty: 90 0RF Dose Instruction: TAKE 1 TABLET BY MOUTH DAILY Rx Instructions: TAKE 1 TABLET BY MOUTH DAILY levothyroxine [Unithroid] 200 mcg tablet 200 mcg PO DAILY Qty: 90 1RF Rx Instructions: 250 mcg once daily levothyroxine [Unithroid] 50 mcg tablet 50 mcg PO DAILY Qty: 90 0RF losartan 50 mg tablet 50 mg PO BID Qty: 180 1RF Follow-up/Referrals: Gregoria Almendarez DO [Primary Care Provider] - 3 Days ([facility] care follow up ) Time of Disposition: 12:59
[2024-10-13 12:28] VITALS: BP 145/62; PULSE 94; RESP 16; TEMP 37; O2SAT 97
[2024-10-13 12:40] LABS: EDUAAPPEAR Clear; EDUABILI Negative (Negative); EDUABLOOD 1+ (Negative); EDUACOLOR1 Yellow; EDUAGLUCOSE Negative (Negative); EDUAKETONE Negative (Negative); EDUALEUKO 1+ (Negative); EDUANITRATE Negative (Negative); EDUAPH 6.5; EDUAPROTEIN Trace (Negative); EDUASPGRAVITY 1.025; EDUAUROBILI 0.2
== END 2024-10-13 13:09 | disposition home or self-care (01) ==
PROVIDERS: Emergency Provider Nurse Practitioner; PCP Family Medicine
DX: N30.01 Acute cystitis with hematuria (principal); I10 Essential (primary) hypertension; E11.9 Type 2 diabetes mellitus without complications; J45.909 Unspecified asthma, uncomplicated; M15.9 Polyosteoarthritis, unspecified; D64.9 Anemia, unspecified; Z87.891 Personal history of nicotine dependence; Z85.850 Personal history of malignant neoplasm of thyroid; Z85.848 Personal history of malignant neoplasm of other parts of nervous tissue
CPT/HCPCS: 81003; 87086; 99213; G0463

== ENCOUNTER 2024-11-18 12:25 | Outpatient (CLI) | payer OTHER, SELFPAY ==
--- NOTE | ~2024-11-18 | US_ITS ---
EXAMINATION: US biopsy lymph node DATE: 11/18/2024 14:37 INDICATION: Cervical lymphadenopathy. Previous metastatic thyroid cancer. TECHNIQUE: Multiple grayscale and Doppler ultrasound images of the right neck were obtained as a regulation supervisor for planned biopsy. The presumptive enlarged right jugular chain lymph node of concern was unable be definitively identified and the planned biopsy was deferred. COMPARISON: Ultrasound dated 08/19/[address] dated 12/02/2020 FINDINGS: A normal sized right jugular chain lymph nodes identified measuring 4 mm in maximal short axis dimension with thin peripheral cortex surrounding a prominent central fatty hilum. The hypoechoic nodule noted on prior ultrasound is unable be identified. A portion of what appear to be one of the right abnormal hyoid muscle was visualized extending anterior to the inferior right jugular vein which recommended a similar appearance to what had been identified as the lymph node of concern on the prior imaging. IMPRESSION: 1. Enlarged right jugular chain lymph node corresponding to the lesion of concern on prior ultrasound was unable be identified and the planned biopsy was deferred. On real-time imaging it appeared that the right abnormal high muscle might account for the appearance of an enlarged lymph node on prior ultrasound. Would consider contrast-enhanced CT of the neck with comparison to the prior imaging on 12/02/2020 for more definitive assessment for any recurrent lymphadenopathy. Reviewed, dictated and finalized at location A. IMPRESSION: 1. Enlarged right jugular chain lymph node corresponding to the lesion of theresa rn on prior ultrasound was unable be identified and the planned biopsy was defe rred. On real-time imaging it appeared that the right abnormal high muscle migh t account for the appearance of an enlarged lymph node on prior ultrasound. Wou ld consider contrast-enhanced CT of the neck with comparison to the prior imag ing on 12/02/2020 for more definitive assessment for any recurrent lymphadenopath y.
--- OUTSIDE RECORDS SUMMARY | 2024-11-18 12:34 | XMS_ITS ---
Author Organization [facility] Address [address] [place] [address] Care Team Providers Care Fleet Technician Name Role Phone Philly Hamilton MD Unavailable [phone] Kendell Gandhi DO Unavailable [phone] Belgica Thornton MD Unavailable [phone] Gregoria Almendarez DO Primary Care Provider + Active Problems Problem Noted Date Diagnosed Date Iron deficiency anemia 02/14/2023 COPD (chronic obstructive pulmonary disease) Vitamin D deficiency 12/16/2021 Endometrial hyperplasia with atypia 09/20/2021 Overview (09/20/2021): Added automatically from request for surgery [id number] Postoperative hypothyroidism 07/19/2021 Prediabetes 07/19/2021 Vitamin B12 deficiency (non anemic) 07/19/2021 Sleep apnea 07/07/2021 Thyroid cancer 12/22/2020 Cancer Staging:Pathologic stage from 01/25/2021:Stage I(pT1b, pN1b, cM0, Age at diagnosis: < 55 years) - Signed by Dylan Mon MD on 02/07/2021 Overview (01/16/2022): PROCEDURE PERFORMED (01/25/21, [place]) 1. Left completion thyroidectomy. 2. 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
--- OUTSIDE RECORDS SUMMARY | 2024-11-18 12:34 | XMS_ITS | Encounter Summary ---
Author Organization [facility] Healthcare Address [address] [place] [address] Care Team Providers Care Gauger Chief Delivery Name Role Phone Kalina Wilhelm NP Primary Care Provider [phone] Philly Hamilton MD Unavailable [phone] Kendell Gandhi DO Unavailable [phone] Belgica Thornton MD Unavailable [phone] Gregoria Almendarez DO Primary Care Provider + Encounter Details Date Type Department Care Team (Late st Contact Info) Description 09/06/2020 Telephone [facility] [id number] [place] [address] Yessenia Mckeon, RT Social History Tobacco Use Types Packs/Day Years Used Date Smoking Tobacco: Former Smokeless Tobacco: Never Alcohol Use Standard Drinks/Week Comments Defer 0 (1 standard drink = 0.6 oz pur e alcohol) Comments No Sex and Gender Information Value Date Recorded Sex Assigned at Not on file Legal Sex Female 3:33 AM FLIGHT SERVICE AGENT Gender Identity Female 02/21/2022 3:04 PM FLIGHT SERVICE AGENT Sexual Orientation Straight 02/21/2022 3: 04 PM FLIGHT SERVICE AGENT documented as of this encounter Plan of Treatment Not on file documented as of this encounter Visit Diagnoses Not on filedocumented in this encounter Additional Health Concerns Infection Onset Date Last Indicated Resolved Time COVID: Suspected 01/19/2021 01/19/2021 01/20/2021 10:05 AM CDT documented as of this encounter Care Teams Gauger Chief Delivery Relationship Specialty Start Date End Date Kalina Wilhelm NP PCP - General 05/02/17 11/06/24 Gregoria Almendarez DO [address] [place] [address] [facility] [address] [place] [address] PCP - General Family Medicine 11/07/24 Philly Hamilton MD [address] [facility] [address] [place] [address] Radiation Oncologist Radiation Oncology 02/03/21 Kendell Gandhi DO [address] [place] [address] MEDICAL ONCOLOGY, [facility] [address] [place] [address] Medical Oncologist/Manager Marketing Sales Hematology and Oncology 08/21/22 Belgica Thornton MD [address] [place] [address] Referring Physician Obstetrics and Gynecology 01/30/24 documented as of this encounter
--- OUTSIDE RECORDS SUMMARY | 2024-11-18 12:34 | XMS_ITS | Clinical Summary ---
Author Organization [facility] Address [address] [place] [address] Care Team Providers Care Sharepoint [employer] Developer Name Role Phone Philly Hamilton MD Unavailable [phone] Kendell Gandhi DO Unavailable [phone] Belgica Thornton MD Unavailable [phone] Gregoria Almendarez DO Primary Care Provider + Allergies Active Allergy Reactions Criticality Noted Date Comments [place] Anaphylaxis High 10/31/2021 Amoxicillin Hives Medium Azithromycin Hives,Unknown Medium 11/07/2024 azithromycin Bee Pollen Swelling Medium Bite sites Ciprofloxacin Hives Medium Erythromycin Hives Medium Levofloxacin Joint pain,Muscle pain Medium 08/14/2022 Penicillins Hives,Unknown Medium 02/08/2017 Product containing penicillin (product) Sulfa (Sulfonamide Antibiotics) Hives,Unknown Medium 11/07/2024 Substance with sulfonamide structure and antibacterial mechanism of action (substance) Sulfamethoxazole-Trime thoprim Hives Medium 06/12/2016 Wool Hives Medium Medications meloxicam (MOBIC) 15 mg tabletIndicati ons:Osteoarthr itis Take 1 tablet (15 mg total) by mouth nightly 3 02/13/20 18 Active methocarbamoL (ROBAXIN) 750 mg tabletIndicati ons:Muscle Spasm Take 1 tablet (750 mg total) by mouth 2 (two) times a day as needed for muscle spasms 12/09/19 21 Active ferrous sulfate 325 mg (65 mg of elemental iron) tabletIndicati ons:Iron Deficiency Anemia Take 1 tablet (325 mg total) by mouth every other day Active multivitamin capsuleIndicat ions:Vitamin Deficiency Prevention Take 1 capsule by mouth nightly Active albuterol HFA (PROVENTIL HFA,VENTOLIN HFA,PROAIR HFA) 90 mcg/actuation inhalerIndicat ions:Acute Asthma Attack Inhale 2 puffs every 4 (four) hours as needed for wheezing or shortness of breath Active TRIAMTERENE ORALIndication s:leg edema Take 37.5 mg by mouth as needed Active fluticasone propionate (FLONASE) 50 mcg/actuation nasal sprayIndicatio ns:Allergic Rhinitis Administer 1 spray into each nostril daily as needed for rhinitis or allergies Active levothyroxine (SYNTHROID) 200 mcg tabletIndicati ons:hypothyroi dism Take 1 tablet (200 mcg total) by mouth agricultural inspector before breakfast 09/05/19 22 Active losartan (COZAAR) 50 mg tablet Take 1 tablet (50 mg total) by mouth daily 06/02/19 23 Active Unithroid 50 mcg tablet Take 1 tablet (50 mcg total) by mouth daily 10/09/19 25 Active estradioL (ESTRACE) 0.01 % (0.1 mg/gram) vaginal cream USE 0.5 GRAM VAGINALLY URETHRA 2 TIMES WEEKLY 09/09/19 25 Active cranberry iosxkzp-b-bera ose 500-50 mg tablet,chewabl e Take by mouth Active cinnamon bark 500 mg capsule Take 1 capsule (500 mg total) by mouth daily Active cholecalcifero l (VITAMIN D-3) 76581 unit capsule Take 1 capsule (10,000 Units total) by mouth daily Active L.crispa,nilam, betty,rhamno/angela t ([employer]S 4-IN-1 ORAL) Take by mouth Active omega-3 fatty acids 1,000 mg capsule Take by mouth Active cyanocobalamin (Vitamin B-12) 2,500 mcg tablet, sublingualIndi cations:Preven tion of Vitamin B12 Deficiency Take 1 tablet (2,500 mcg total) by mouth daily with lunch 025 Discontinued(Doron matthews Reported) Concerta 18 mg CR tablet Take 1 tablet (18 mg total) by mouth every morning 06/02/19 025 Discontinued levothyroxine (SYNTHROID) 25 mcg tablet Take 1 tablet (25 mcg total) by mouth every morning 02/26/20 23 025 Discontinued(Al ternate therapy) Active Problems Problem Noted Date Diagnosed Date Iron deficiency anemia 02/14/2023 COPD (chronic obstructive pulmonary disease) Vitamin D deficiency 12/16/2021 Endometrial hyperplasia with atypia 09/20/2021 Overview (09/20/2021): Added automatically from request for surgery [id number] Postoperative hypothyroidism 07/19/2021 Prediabetes 07/19/2021 Vitamin B12 [...] 09/04/2019 Class 3 severe obesity in adult (CMS/[facility]) 2019 Lumbar spondylosis 03/18/2018 Essential hypertension 02/08/2017 Abnormal uterine bleeding 05/31/2015 Overview (03/14/2023): Other specified abnormal uterine and vaginal bleeding;Recorded Elsewhere: No Location: [facility] Source: EHR Chronic: N Practice ID: [id number] Billable Time: 10:45:00 AM Cyst of ovary 10/29/2012 Overview (03/14/2023): Other and unspecified ovarian cyst;Recorded Elsewhere: No Location: [facility] Source: EHR Chronic: N Practice ID: [id number] Billable Time: 03:30:00 PM 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 12 Overview (03/14/2023): Neoplasm of uncertain behavior of ovary;Recorded Elsewhere: No Location: [facility] Source: EHR Chronic: N Practice ID: [...] 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/15/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 06/15/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 ([facility]) 05/17/201705/31 Mass 03/04/2017 06/15/2022 Low back pain 02/08/2017 06/15/2022 Neoplastic disease 02/05/2017 3 Foreign body in vulva and vagina 03/28/2012 01/24/2024 Overview (03/14/2023): Foreign body in vulva and vagina;Recorded Elsewhere: No Location: [facility] Source: EHR Chronic: N Practice ID: [id number] Billable Time: 02:00:00 PM Encounters Date Type Department Care Team Description 11/07/2024 8:15 AM CDT Office Visit [facility] [address] [place] [address] Kendell Gandhi, DO Iron deficiency anemia, unspecified iron deficiency anemia type 10/09/2024 Telephone [facility] [address] [place] [address] Bethany Clark CMA 10/06/2024 Orders Only [facility] Obstetrics and Gynecology [address] 13th [place] [address] [place] [address] Barb Mendez RN from Last 3 Months Immunizations Immunization Administration [...] on file Legal Sex Female 3:33 AM SHELL WORKER Gender Identity Female 02/21/2022 3:04 PM SHELL WORKER Sexual Orientation Straight 02/21/2022 3: 04 PM SHELL WORKER Occupation Industry Job Start Date Job End [...] Sign Reading Time Taken Comments Blood Pressure 151/82 11/07/2024 8:23 AM CDT Pulse 82 11/07/2024 8:23 AM CDT Temperature 36.6 C (97.9 F) 11/07/2024 8:23 AM CDT Respiratory Rate 18 11/07/2024 8:23 AM CDT Oxygen Saturation 95% 11/07/2024 8:23 AM CDT Inhaled Oxygen Concentration - - Weight 195 kg (429 lb 14.4 oz) 11/07/2024 8:23 A M CDT no shoes Height 182.5 cm (5' 11.85) 11/07/2024 8:23 AM C DT Body Mass Index 58.55 11/07/2024 8:23 AM CDT Plan of Treatment Health Maintenance Due Date [...] season) 2023 04/23/2021, 06/05/2020 Influenza Vaccine (#1) 2024 , 01/11/2022, 01/03/2021, Additional history exists Procedures Procedure Name Priority Date/Time Associated Diagnosis Comments CBC WITH AUTO DIFFERENTIAL Routine 10/31/2024 3:37 PM CDT Iron deficiency anemia, unspecified iron deficiency anemia type FERRITIN Routine 10/31/2024 3:37 PM CDT Iron deficiency anemia, unspecified iron deficiency anemia type IRON PROFILE W/ IBC Routine 10/31/2024 3 :37 PM CDT Iron deficiency anemia, unspecified iron deficiency anemia type VITAMIN B12 Routine 10/31/2024 3:37 PM CDT Iron deficiency anemia, unspecified iron deficiency anemia type PAP AND HIGH RISK HPV, REFLEX TO GENOTYPING Routine 06/15/2022 4:35 PM CDT Endometrial hyperplasia with atypia from Last 3 Months or Most Recently Relevant to Health Maintenance Results * (ABNORMAL) Iron profile w/ IBC (10/31/2024 3:37 PM CDT) Pathologist [facility] Iron Bind.Cap.(TIBC) 364 250 - 450 ug/dL [facility] - 01 UIBC 326 131 - 425 ug/dL [facility] - 01 Iron 38 27 - 159 ug/dL [facility] - 01 Iron saturation 10(L) 15 - 55 % [facility] - 01 Blood 10/31/2024 3:37 PM CDT 10/31/2024 Narrative [facility] - 11/01/2024 8:11 AM CDT Performed at: [facility] [id number] Motel Front Desk Clerk: Choco Hubbard PhD, Phone: [phone] us Kendell Gandhi DO LAB BLOOD ORDERABLES Final R esult [facility] - 01 * (ABNORMAL) CBC with auto differential (10/31/2024 3:37 PM CDT) WBC 10.3 3.4 - 10.8 x10E3/uL [facility] - 01 RBC 5.26 3.77 - 5.28 x10E6/uL [facility] - 01 Hgb 13.4 11.1 - 15.9 g/dL [facility] - 01 Hct 44.8 34.0 - 46.6 % [facility] - 01 MCV 85 79 - 97 fL [facility] - 01 MCH 25.5(L) 26.6 - 33.0 pg [facility] - 01 MCHC 29.9(L) 31.5 - 35.7 g/dL [facility] - 01 Rdw 15.3 11.7 - 15.4 % [facility] - 01 Platelets 336 150 - 450 x10E3/uL [facility] - 01 Neutrophils pct 71 Not Estab. % [facility] - 01 Lymphs pct 19 Not Estab. % [facility] - 01 Monocytes pct 6 Not Estab. % [facility] - 01 Eosinophils pct 2 Not Estab. % [facility] - 01 Basophil pct 1 Not Estab. % [facility] - 01 Neutrophil abs 7.4(H) 1.4 - 7.0 x10E3/uL [facility] - 01 Lymphs (Absolute) 1.9 0.7 - 3.1 x10E3/uL [facility] - 01 Monocyte abs 0.7 0.1 - 0.9 x10E3/uL [facility] - 01 Eosinophils, abs 0.2 0.0 - 0.4 x10E3/uL [facility] - 01 Basophils, abs 0.1 0.0 - 0.2 x10E3/uL [facility] - 01 Immature Granulocytes 1 Not Estab. % [facility] - 01 Immature Grans (Abs) 0.1 0.0 - 0.1 x10E3/uL [facility] - 01 Blood 10/31/2024 3:37 PM CDT 10/31/2024 Narrative [facility] - 11/01/2024 7:09 AM CDT Performed at: [facility] [id number] [employer] Front Desk Clerk: Choco Hubbard PhD, Phone: [phone] us Kendell Gandhi DO LAB BLOOD ORDERABLES Final R esult [facility] * Ferritin (10/31/2024 3:37 PM CDT) [facility] Ferritin 56 15 - 150 ng/mL [facility] - 01 Blood 10/31/2024 3:37 PM CDT 10/31/2024 Narrative [facility] - 11/01/2024 8:11 AM CDT Performed at: [address] [place] [id number] [employer] Front Desk Clerk: Choco Hubbard PhD, Phone: [phone] Kendell Gandhi DO LAB BLOOD ORDERABLES Final R esult Performing Organization Address City/[facility]/ZIP Co de Phone Number [facility] - * Vitamin B12 (10/31/2024 3:37 PM CDT) Vitamin B12 356 232 - 1,245 pg/mL [facility] - Blood 10/31/2024 3:37 PM CDT 10/31/2024 Narrative [facility] - 11/01/2024 8:11 AM CDT Performed at: [address] [place] [id number] [employer] Front Desk Clerk: Choco Hubbard PhD, Phone: [phone] Kendell Gandhi DO LAB BLOOD ORDERABLES Final R esult Performing Organization Address City/[facility] Co de Phone Number [facility] - * (ABNORMAL) Pap and High Risk HPV, reflex to Genotyping (06/15/2022 4:35 PM CDT) Thin prep (Pap test) 06/15/2022 4:35 PM CDT 06/15/2022 7:38 PM CDT Narrative PATHOLOGY [facility] - 06/21/2022 11:22 AM CDT EPIC results best viewed via link to PDF [facility] [place] [address] Note to Patients: This report may contain [...] Gender: F : 1970 (Age: 52) Address: [address] [place] [address] Hospital #: [id number] Service: AUTOC[employer] DETAILER Location: Patient Type: [facility] SPECIMEN Taken: 06/15/2022 Received: 06/15/2022 Accessioned: [...] 66. This HPV test was performed at [facility] in [place], [place] utilizing the Gen-Probe Aptima assay. sxja/06/21/2022 [...] histologic results be correlated for laboratory quality assurance qa lab analyst & improvement standards. FOR ALL HIGH-GRADE CASES [...] spotting. The HPV test was performed by [facility], [address] [place] [address]. Report Images and scanned documents, if included only viewable in PDF version The performance characteristics of some immunohistochemical stains, in-situ hybridization and fluorescence in-situ hybridization tests and immunophenotyping by flow cytometry cited in this report (if any) were determined by the Surgical Pathology Department at [facility] as part of an ongoing quality rn program and in compliance with federally mandated [...] determined by the Surgical Pathology Department of [facility]. It has not been cleared or approved by the U. S. Food and Drug Administration. us Saundra Gomez MD LAB CYTOLOGY ORDERABLES F inal Result PATHOLOGY [facility] 3rd Floor [place], [place] [phone] from Last 3 Months or Most Recently Relevant to Health Maintenance Insurance [facility] CHOICE PLUS CHOICE PLUS CHOICE PLUS Advance Directives For more information, please contact: [phone] * Full Code (Latest Code Status on File) Date Activated Date Inactivated Comments 01/10/2022 6:24 PM 01/11/2022 3:10 PM * Full Code Date Activated Date Inactivated Comments 01/25/2021 4:35 PM 01/27/2021 4:54 PM Care Teams Sharepoint Solutions Developer Relationship Specialty Start Date End Date Gregoria Almendarez DO [address] [place] [address] [facility] [address] [place] [address] PCP - General Family Medicine 11/07/24 Philly Hamilton MD [address] [place] [address] Radiation Oncologist Radiation Oncology 02/03/21 Kendell Gandhi DO [address] [place] [address] MEDICAL ONCOLOGY, [facility] [address] [place] [address] Medical Oncologist/Right Of Way Buyer Hematology and Oncology 08/21/22 Belgica Thornton MD [address] [place] [address] Referring Physician Obstetrics and Gynecology 01/30/24
== END 2024-11-18 12:26 | disposition home or self-care (01) ==
PROVIDERS: PCP Family Medicine; Visit Provider Internal Medicine
DX: R59.0 Localized enlarged lymph nodes (principal); C73 Malignant neoplasm of thyroid gland
CPT/HCPCS: 38505; 76942

== ENCOUNTER 2025-03-19 15:57 | Emergency (ER) | payer OTHER, SELFPAY ==
--- NOTE | ~2025-03-19 | XR_ITS ---
EXAMINATION: XR shoulder LT min 2V, 03/19/2025 16:12 DIRECTOR PHARMACEUTICAL HISTORY: left shoulder pain/limited rom no injury COMPARISON: No comparisons available. Findings: No acute fracture or malalignment. No significant degenerative changes. Soft tissues unremarkable. Impression: No acute fracture or malalignment. Reviewed, dictated and finalized at location P. CTOR PHARMACEUTICAL Impression: No acute fracture or malalignment.
--- NOTE | ~2025-03-19 | XR_ITS ---
EXAMINATION: XR humerus LT, 03/19/2025 16:12 SHINGLER HISTORY: left arm pain/ limited rom no injury COMPARISON: No comparisons available. Findings: No acute fracture or malalignment. No significant degenerative changes. Soft tissues unremarkable. Impression: No acute fracture or malalignment. Reviewed, dictated and finalized at location P. GLER Impression: No acute fracture or malalignment.
[2025-03-19 16:10] VITALS: BP 157/89; PULSE 94; RESP 16; TEMP 37.2; O2SAT 98
--- NOTE | 2025-03-19 16:45 | ED.UPPEXIN ---
HPI - Extremity Injury (Upper) General Chief Complaint: Extremity Injury, Upper Stated Complaint: L arm pain Time Seen by Provider: 03/19/25 16:00 Source: patient Mode of arrival: ambulatory Limitations: no limitations History of Present Illness HPI narrative: patient is a 54-year-old female who presents with left shoulder and arm pain for 5 days. Denies any known injury but states I am 400 lb and have to move myself and thinks she irritated her shoulder. Patient states this has happened a few years ago and had Physical therapy. Reports Aleve and Tylenol help with pain Related Data Home Medications ?Medication ?Instructions ?Recorded ?Confirmed ?Last Taken ?Type methocarbamol 750 mg tablet 750 mg PO ONCE 07/29/19 10/13/24 Unknown History triamterene 37.5 1 cap PO DAILY PRN swelling 07/29/19 10/13/24 Unknown History mg-hydrochlorothiazide 25 mg capsule ferrous sulfate 325 mg (65 mg 325 mg PO 2XW 04/12/22 10/13/24 Unknown History iron) tablet fluticasone propionate 50 1 spray intranasal BID PRN 04/12/22 10/13/24 Unknown History mcg/actuation nasal allergies spray,suspension (Flonase Allergy Relief) lactobacillus combination no.9 4 4,000 mmu cells PO DAILY 04/12/22 10/13/24 Unknown History billion cell capsule (Adult 50 Plus Probiotic) omega-3 fatty acids 500 mg capsule 500 mg PO DAILY 04/12/22 10/13/24 Unknown History cholecalciferol (vitamin D3) 50 50 mcg PO DAILY 04/30/24 10/13/24 Unknown History mcg (2,000 unit) capsule cinnamon bark extract 500 mg tablet 500 mg PO DAILY 04/30/24 10/13/24 Unknown History ketotifen fumarate 0.025 % (0.035 1 drp EACH EYE Q12H PRN allergy 04/30/24 10/13/24 Unknown History %) eye drops (Alaway) symptoms psyllium husk 0.4 gram capsule 0.4 g PO DAILY PRN constipation 04/30/24 10/13/24 Unknown History (Daily Fiber) melatonin 5 mg capsule mg PO PRN 11/27/24 Unknown History Allergies Allergy/AdvReac Type Severity Reaction Status Date / Time azithromycin Allergy Intermediate HIVES Verified 03/19/25 16:10 Penicillins Allergy Mild Hives Verified 03/19/25 16:10 amoxicillin Allergy Unknown Hives Verified 03/19/25 16:10 ampicillin Allergy Unknown Skin Verified 03/19/25 16:10 irritation ciprofloxacin Allergy Unknown Other Verified 03/19/25 16:10 Sulfa (Sulfonamide Allergy Unknown Skin Verified 03/19/25 16:10 Antibiotics) irritation sulfamethoxazole Allergy Unknown Hives Verified 03/19/25 16:10 levofloxacin Allergy Other Verified 03/19/25 16:10 Review of Systems Review of Systems: All systems reviewed & are unremarkable except as noted in HPI and below Constitutional: Constitutional: Denies body ache(s), Denies chills, Denies fatigue, Denies fever(s), Denies headache(s), Denies malaise and Denies weakness Eyes: Eyes: Denies blurry vision, Denies irritation and Denies loss of vision ENT: Denies otalgia, Denies headache(s), Denies nasal discharge, Denies sinus pain and Denies sore throat Cardiovascular: Cardiovascular: Denies chest pain, Denies irregular heart rhythm and Denies dyspnea Respiratory: Respiratory: Denies dyspnea Gastrointestinal: Gastrointestinal: Denies abdominal pain, Denies melena, Denies hematochezia, Denies diarrhea, Denies nausea and Denies vomiting Musculoskeletal: Musculoskeletal: Denies back pain, Denies myalgias and Reports arthralgias Integumentary/Breasts: Skin/Breast: Denies pruritus and Denies rash Neurologic: Denies headache(s), Denies loss of vision and Denies weakness Psychiatric: Psychiatric: Reports no additional psychiatric complaints Endocrine: Endocrine: Denies fatigue PMFSH Past Medical History Medical History Spinal cord cancer 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 Inflammatory arthritis Spinal cord cancer Chronic UTI Hypertension Arthritis Diabetes Thyroid cancer Anemia Depression Asthma Allergies Surgical History Surgical History History of removal of ovarian cyst H/O knee surgery H/O rhinoplasty Family History Family History Father Family history of lung cancer Family history of malignant neoplasm of brain Mother , February 24 2024 Family history of malignant neoplasm of breast in first degree relative Family history of malignant neoplasm of kidney Family history of lung cancer Social History Social History Social History: Caffeine-none Smoking status: Former smoker Second hand tobacco smoke exposure: No Smoking end date: 04/02/92 Alcohol intake: never Substance use: never Substance use type: does not use Lack of Transportation: No Lack of Food: Never True Current Housing: I Have Housing Concerned About Future Housing: No Difficulty Paying Gas/Electric Bills: No Difficulty Paying for Meds: No Currently Unemployed: No Education: Associate Degree Difficulty w/ Childcare or Family Care: No Living arrangements: with family Occupation/Education: unemployed Gender identity (if verbalized by the patient): Female Agree to blood products: Yes Comments At time of signature, agree with nursing past medical, surgical, social and family history. There is no relevant family history pertinent to the presenting complaint. Exam Const: General: cooperative, healthy appearing, comfortable, no acute distress and well nourished Nutritional Appearance: well nourished and obese morbidly obese Orientation/consciousness: patient oriented x3 Limitations: no limitations HENMT: Head: normal to inspection, normocephalic and atraumatic Ears: hearing grossly normal bilaterally and external ears normal Face/Nose/Sinus: Normal external nose present, normal facial exam and face symmetric Face and sinus: normal facial exam and face symmetric Mouth: Yes lip normal Eyes: General: appearance normal, both eyes and all related structures Alignment and Position: alignment normal and position normal Periorbital: periorbital findings normal Eyelids: eyelids normal Pupils: Equal, round and reactive pupils present EOM: EOMs intact bilaterally Neck: Neck: normal visual inspection, full ROM and supple Chest: Chest palpation & inspection: normal inspection of the chest Resp: Effort & Inspection: normal respiratory effort and able to speak in complete sentences Auscultation: clear to auscultation bilaterally Cardio: Rate: regular rate Rhythm: regular rhythm Heart sounds: S1 normal heart sound present and S2 normal heart sound present GI: Inspection: normal to inspection Skin: General skin exam: normal color and no rashes or lesions noted Neuro: General: patient oriented x3 and moves all extremities Cranial nerves: Yes Equal, round and reactive pupils present Speech: normal speech Gait exam (Neuro): Normal gait present Extrem: General: normal to inspection, full ROM and no edema Left upper extremity: shoulder/upper arm inspection abnormal, tenderness of the A-C joint, axillary nerve sensory function normal and abnormal ROM pain with active ROM in ADduction and in ABduction; but not in extension and but not in flexion; no swelling and no ecchymosis and elbow/forearm normal to inspection, normal ROM and distal pulses intact; no tenderness and no swelling Psych: Appearance: grossly normal and well kempt Mental Status: mental status grossly normal Speech and movement: Normal speech and movement present Affect: normal affect Attitude: cooperative Thought process: Normal thought process present Course Course Emergency Course: Patient is aware of diagnosis, understands and agrees to treatment plan. Anticipatory guidance given. Patient agrees to follow-up as directed and is aware of reasons to seek care at the emergency department. Portions of this record may have been created with voice recognition software Level of Care: Express Care Visit Vital Signs Vital signs: Vital Signs Temperature 37.2 C 03/19/25 16:10 Pulse Rate 94 03/19/25 16:10 Respiratory Rate 16 03/19/25 16:10 Blood Pressure 157/89 H 03/19/25 16:10 Pulse Oximetry 98 03/19/25 16:10 Temperature 37.2 C 03/19/25 16:10 Pulse Rate 94 03/19/25 16:10 Respiratory Rate 16 03/19/25 16:10 Blood Pressure 157/89 H 03/19/25 16:10 Pulse Oximetry 98 03/19/25 16:10 [facility] MDM Narrative Medical decision making narrative: x-ray showed no fracture. Patient to follow-up with PCP for physical therapy. Sling applied Pt well hydrated appearing, in no respiratory distress, hemodynamically stable. Recommend supportive care. The patient is stable at time of discharge the clinical impression was discussed and the patient was given the opportunity to ask questions, which were addressed as completely as possible given the information available at present. Anticipatory guidance and return to care precautions were discussed and the importance of primary care follow-up was stressed and encouraged. The patient voiced understanding of the plan, indications to return, and the need for follow-up. Exam findings show no acute concerns or changes Patient is appropriate for outpatient treatment and follow-up. Differential Diagnosis Differential Diagnosis: Differential diagnostic considerations for upper extremity injury include sprain/strain shoulder, dislocation of shoulder, fracture of humerus, fracture of clavicle, tendon injury Medical Records I have reviewed the following patient records and this information was taken into consideration when formulating the assessment and plan.: previous clinic visits Imaging Data Radiologist's impression: ITS Impressions Humerus X-Ray 03/19/25 16:37 Impression: No acute fracture or malalignment. Shoulder X-Ray 03/19/25 16:37 Impression: No acute fracture or malalignment. Discharge Plan Discharge Clinical Impression: Left shoulder strain Patient Disposition: Home Condition: Stable Instructions: Shoulder Sprain (ED) Additional Instructions: Xray showed no fracture. Minimize activities that aggravate the condition The RICE protocol. Follow the RICE protocol as soon as possible after your injury:. Ice should be immediately applied to keep the swelling down. It can be used for 20 to 30 minutes, three or four times daily. Do not apply ice directly to your skin. Use sling to support shoulder Medication: take steroids in the morning with food Please schedule a follow-up visit with your personal physician for further evaluation and treatment within 1week OR If your symptoms persist, change or worsen significantly before you can contact your personal physician then please, without delay, go to the emergency department for further evaluation. Patient Language: Portuguese Prescriptions: New methylprednisolone [Medrol (Xander)] 4 mg tablets,dose pack See Rx Instructions .ROUTE .COMPLEX Qty: 21 0RF Rx Instructions: orally per package directions No Action (DME) CPAP Equipment See Rx Instructions .Route .MEDSUPPLY Qty: 1 0RF Rx Instructions: Rx: Mask Re-Fit (Consider AmaraView and [employer] FFM) Dx: G47.33 *Please link me to patient's CPAP machine through [facility]* Physician: Dr. Gregoria Almendarez, DME: [facility] in [place], [place] albuterol sulfate 90 mcg/actuation HFA aerosol inhaler 2 puff inhalation Q4-6H PRN (Reason: shortness of breath or wheezing) Qty: 8.5 2RF ferrous sulfate 325 mg (65 mg iron) tablet 325 mg PO 2XW Adult 50 Plus Probiotic 4 billion cell capsule 4,000 mmu cells PO DAILY Rx Instructions: administer with a meal omega-3 fatty acids 500 mg capsule 500 mg PO DAILY fluticasone propionate [Flonase Allergy Relief] 50 mcg/actuation spray,suspension 1 spray intranasal BID PRN (Reason: allergies) Rx Instructions: administer into each nostril ketotifen fumarate [Alaway] 0.025 % (0.035 %) drops 1 drp EACH EYE Q12H PRN (Reason: allergy symptoms) psyllium husk [Daily Fiber] 0.4 gram capsule 0.4 g PO DAILY PRN (Reason: constipation) cinnamon bark extract 500 mg tablet 500 mg PO DAILY cholecalciferol (vitamin D3) 50 mcg (2,000 unit) capsule 50 mcg PO DAILY melatonin 5 mg capsule PO PRN methocarbamol 750 mg tablet 750 mg PO ONCE triamterene-hydrochlorothiazid 37.5-25 mg capsule 1 cap PO DAILY PRN (Reason: swelling) meloxicam 15 mg tablet See Rx Instructions .ROUTE .COMPLEX Qty: 90 1RF Dose Instruction: TAKE 1 TABLET BY MOUTH DAILY Rx Instructions: TAKE 1 TABLET BY MOUTH DAILY levothyroxine [Unithroid] 50 mcg tablet See Rx Instructions .ROUTE .COMPLEX Qty: 90 2RF Dose Instruction: TAKE 1 TABLET BY MOUTH DAILY Rx Instructions: TAKE 1 TABLET BY MOUTH DAILY losartan 50 mg tablet 50 mg PO BID Qty: 180 1RF levothyroxine [Unithroid] 200 mcg tablet See Rx Instructions .ROUTE .COMPLEX Qty: 90 3RF Dose Instruction: TAKE 1 TABLET BY MOUTH ONCE DAILY Rx Instructions: TAKE 1 TABLET BY MOUTH ONCE DAILY Follow-up/Referrals: Gregoria Almendarez DO [Primary Care Provider, Family Practice] - 3 Days Time of Disposition: 17:07
== END 2025-03-19 17:13 | disposition home or self-care (01) ==
PROVIDERS: Emergency Provider Nurse Practitioner Family; PCP Family Medicine
DX: S46.912A Strain of unspecified muscle, fascia and tendon at shoulder and upper arm level, left arm, initial encounter (principal); X58.XXXA Exposure to other specified factors, initial encounter; I10 Essential (primary) hypertension; E11.9 Type 2 diabetes mellitus without complications; J44.9 Chronic obstructive pulmonary disease, unspecified; M15.9 Polyosteoarthritis, unspecified; D64.9 Anemia, unspecified; Z85.848 Personal history of malignant neoplasm of other parts of nervous tissue; Z85.850 Personal history of malignant neoplasm of thyroid; Z87.891 Personal history of nicotine dependence
CPT/HCPCS: 73030; 73060; 99213; A4565; G0463